=== PATIENT | male | born 1955 | race Caucasian/White ===

== ENCOUNTER 2025-08-08 14:16 | Emergency (ER) | payer MEDICARE, SELFPAY ==
--- OUTSIDE RECORDS SUMMARY | 2025-08-07 11:00 | XMS_ITS | Encounter Summary ---
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 Name Role Phone Brendon Jackson PA-C Primary Care Provider + [phone] Rosa Guthrie RN Unavailable Reason for Referral * Consultation (Routine) - Authorized Specialty Diagnoses / Procedures Referred By Conteb t Referred To Contact Ophthalmology Diagnoses Type 2 diabetes mellitus with stage 3 chronic kidney disease, with long-term current use of insulin, unspecified whether stage 3a or 3b CKD (HCC) Brendon Jackson PA-C [address] [place] [address] Phone: tel: fax: [facility] [address] [place] [address] Phone: tel:[phone] fax: Referral ID Status Reason Start Date Expiration Date Visits Requested Visits Authorized [id number] Authorized Specialty Services Required 08/07/2025 08/07/2026 1 1 Reason for Visit * Reason Comments Follow-up Patient here for fol low up Encounter Details Date Type Department Care Team (Late st Contact Info) Description 08/07/2025 11:00 AM EDT Office Visit [address] [place] [address] Brendon Jackson PA-C [address] [place] [address] Type 2 diabetes mellitus with stage 3 chronic kidney disease, with long-term current use of insulin, unspecified whether stage 3a or 3b CKD (HCC) (Primary Dx); Encounter for immunization; Other fatigue; Type 2 diabetes mellitus without complication, with long-term current use of insulin (HCC) Social History Tobacco Use Types Packs/Day Years Used Date Smoking Tobacco: Never Passive Smoke Exposure: Never Smokeless Tobacco: Never Alcohol Use Standard Drinks/Week Comments Not Currently 0 (1 standard drink = 0.6 oz pur e alcohol) Alcohol Answer Date Recorded How often do you have a drink containing alcohol ? 0 03/08/2024 How many drinks containing a lcohol do you have on a typical day when you are drinking? 0 03/08/2024 How often do you have six or more drinks on one occasion? 0 03/08/2024 Depression Answer Date Recorded Patient Health Questionnaire-9 Score 3 03/08/2024 Patient Health Questionnaire-9 Score 3 03/08/2024 Last PHQ-9: Questionnaire Data Not on file 0 03/08/2024 Housing Stability Answer Date Recorded What is your housing situation today? I have barrera kebede 06/07/[address] you li ve. Do you have problems with any of the following? None of the above 06/07/2025 Food Insecurity Answer Date Recorded Within the past 12 months, y ou worried that your food would run out before you got money to buy more: Never True 06/07/2025 Within the past 12 months,th e food you bought just didn't last and you didn't have enough money to get more: Never True 11/2024 Transportation Answer Date Recorded In the past 12 months, has l ack of transportation kept you from medical appts, meetings, work or from getting things needed for daily living? No 06/07/2025 Intimate Partner Violence Answer Date R ecorded Within the last year, have y ou been afraid of your partner or ex-partner? 2 03/08/2024 Within the last year, have y ou been humiliated or emotionally abused in other ways by your partner or ex-partner? 2 Within the last year, have y ou been kicked, hit, slapped, or otherwise physically hurt by your partner or ex-partner? 2 03/08/2024 Within the last year, have y ou been raped or forced to have any kind of sexual activity by your partner or ex-partner? 2 03/08/2024 Utilities Answer Date Recorded In the past 12 months, has t he electric, gas, oil or water company threatened to shut off services in your home? No 06/07/2025 Depression Answer Date Recorded Patient Health Questionnaire-2 Score 0 06/07/2025 Internet Access Answer Date Recorded Internet Access Q1 Yes 06/07/2025 Internet Access Q2 Not on file 06/07/2025 Sex and Gender Information Value Date Recorded Sex Assigned at Male 11/10/2022 8:55 AM EST Legal Sex Male 8:38 PM EST Gender Identity Male 09/17/2022 9:06 PM EST Sexual Orientation Choose not to disclose 2021 9:06 PM EST documented as of this encounter Last Filed Vital Signs Vital Sign Reading Time Taken Comments Blood Pressure 114/68 08/07/2025 11:01 AM EDT Pulse 71 08/07/2025 11:01 AM EDT Temperature 36.4 C (97.6 F) 08/07/2025 11:01 AM EDT Respiratory Rate - - Oxygen Saturation 97% 08/07/2025 11:01 AM EDT Inhaled Oxygen Concentration - - Weight 108 kg (237 lb) 08/07/2025 11:01 AM EDT Height - - Body Mass Index 33.53 05/07/2024 1:55 PM EDT documented in this encounter Patient Instructions * Patient Instructions* Brendon Jackson PA-C - 08/07/2025 11:00 AM EDT - 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 - Keep using your current insulin as you have been. - Get your blood tests done: hemoglobin A1c and a full metabolic panel (this checks things like your electrolytes, kidney, liver, and thyroid function). We will forward lab results to your heart and kidney doctors. - If you start taking Mounjaro, call after you have taken three doses to request next dose up. - Keep using your Yolanda 3 Plus glucose monitor. Let us know when you are running low on supplies sowe can refill them. Please call if sugar (glucose) is under 50 or over 500. - Your next kidney doctor appointment is on August 14, 2025, at 1:30 PM --please call and confirm the address for this visit. The online portal says harcourt? Appointments Cardiology Aarti Milton AYALA Tuesday 10.3 at 2 PM And Tuesday 10.7 at 2:30 PM [facility] [address] [facility] [address] Phone: Nephrology (kidneys) Dr. Epstein Tuesday 10.8 at 1:30 PM Check address--- [address] [place] [address] Dr. Simon E [facility] [phone] Phone: documented in this encounter Progress Notes * Brendon Jackson PA-C - 08/07/2025 11:00 AM EDT Subjective Patient ID: Brendon Valderrama is a 69 y.o. male who presents today for Chief Complaint Patient presents with Follow-up Patient here for follow up HPI Brendon reports difficulty obtaining insulin pen needles from the pharmacy, resulting in running low on supplies despite having insulin available. He has also been unable to get his Trulicity prescription filled, missing doses for 1 or 2 weeks going by my last prescription. He continues to take Brilinta and Entresto twice daily, furosemide (Lasix) 40 daily with 20 nightly as needed (though takes most nights), Farxiga 5 mg, baby aspirin, pravastatin at night, and carvedilol twice daily. He takes amultivitamin, zinc, vitamin D, fish oil, and Tylenol for arthritis. 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 He reports staying in bed for several days due to exhaustion, with improvement after rest and taking vitamins. He experienced a stomach ache but denies fever and diarrhea, noting constipation that has since resolved. He suspected possible COVID infection but feels better now. Except the fatigue. He uses a glucose monitor, now on Yolanda 3 Plus, preferred the Dexcom device for its immediate readings on demand, I believe we had to switch due to insurance. He receives Yolanda sensors by mail and has plenty. He is transitioning his residence from [place] to [place], living in a mobile home with his ?partner. He expresses concern about Lyme disease due to colleagues at work being affected, but denies classic bullseye rash, reporting only occasional dry skin changes on himself. Not sure what's going on with his colonoscopy, trying to focus on DM and CKD for now. Thinking of getting a primary closer to [place] as it's 90 minute commute to see me. Review of Systems Recent fatigue No fever No melena or hematochezia Objective BP 114/68 (BP Location: Left arm, Patient Position: Sitting, BP Cuff Size: Large adult) Pulse 71 Temp 97.6 ??F (36.4 ??C) (Temporal) Wt 237 lb (108 kg) SpO2 97% BMI 33.53 kg/m?? Physical Exam Constitutional: General: He is not in acute distress. Appearance: He is obese. Eyes: Extraocular Movements: Extraocular movements intact. Cardiovascular: Rate and Rhythm: Normal rate. Pulmonary: Effort: Pulmonary effort is normal. Musculoskeletal: General: Normal range of motion. Right lower leg: No edema. Left lower leg: No edema. Neurological: General: No focal deficit present. Mental Status: He is alert. Mental status is at baseline. Psychiatric: Mood and Affect: Mood normal. Thought Content: Thought content normal. Assessment/Plan Assessment & Plan Type 2 diabetes mellitus with stage 3 chronic kidney disease, with long-term current use of insulin, unspecified whether stage 3a or 3b CKD ([facility]) - Contacted pharmacy to resolve insulin pen needle supply issue; prescription expected to be ready this afternoon. Advised to continue current insulin regimen 24 u bid. Ordered hemoglobin A1c test toassess glycemic control. Prescribed Mounjaro as an alternative to Trulicity, pending insurance approval. Instructed to call after completing three doses of Mounjaro for dose escalation. Advised to continue using Yolanda 3 Plus glucose monitoring system and to notify when supplies are low for refill. Encounter for immunization Flu vaccine Other fatigue Check CMP and TSH Reassess Lasix with cardiology in 2 days. Currently euvolemic Clinically no Lyme disease, no utility for IgG test Addendum Received notice of call 08:08 on 08.08.25 the glucose was critical 518 Bicarb is normal 22 no DKA Called Brendon, feeling about the same as yesterday, not sick or dizzy Does not have glucometer, left it at home Will check glucose later today after taking his basal insulin Suggested taking 26 u instead of 24 If glucose still > 500 advised go to emergency room. KELLY on CKD Until see cardiology tomorrow, stop Lasix 20 mg at night and decrease morning 40 mg to 20 mg. Follow up in about 2 months (around 10/07/2025) for chronic disease managment. Future Appointments Date Time Provider Department Center 09/26/2025 12:40 PM Brendon Jackson PA-C [facility] documented in this encounter Plan of Treatment Upcoming Encounters Date Type Department Care Team (Late st Contact Info) Description 09/26/2025 12:40 PM EST Office Visit [facility] [address] [place] [address] Brendon Jackson PA-C [address], [place] [id number] Scheduled Referrals Name Type Priority Associated Diagnoses Order Schedule Referral to Ophthalmology Outpatient Referral Routine Type 2 diabetes mellitus with stage 3 chronic kidney disease, with long-term current use of insulin, unspecified whether stage 3a or 3b CKD (CMS/[facility]) Expected: 08/07/2025 (Approximate), Expires: 08/07/2026 documented as of this encounter Procedures Procedure Name Priority Date/Time Associated Diagnosis Comments TSH W/REFLEX TO FT4 Routine 08/07/2025 1 1:36 AM EDT Other fatigue HEMOGLOBIN A1C Routine 08/07/2025 11:36 AM EDT Type 2 diabetes mellitus with stage 3 chronic kidney disease, with long-term current use of insulin, unspecified whether stage 3a or 3b CKD (HCC) COMPREHENSIVE METABOLIC PANEL Routine 08/07/2025 11:36 AM EDT Other fatigue documented in this encounter Results * (ABNORMAL) Hemoglobin A1c (08/07/2025 11:36 AM EDT) Hemoglobin A1c 12.1(H) <5.7 % [facility] [place] [facility] Comment: For someone without known diabetes, a hemoglobin A1c value of 6.5% or greater indicates that they may have diabetes and this should be confirmed with a follow-up test. For someone with known diabetes, a value <7% indicates that their diabetes is well controlled and a value greater than or equal to 7% indicates suboptimal control. A1c targets should be individualized based on duration of diabetes, age, comorbid conditions, and other considerations. Currently, no consensus exists regarding use of hemoglobin A1c for diagnosis of diabetes for children. Blood Venous blood specimen / Unknown 08/07/2025 11:36 AM EDT 08/07/2025 11:36 AM EDT Narrative [facility] - 08/08/2025 8:07 AM EDT FASTING:NO FASTING: NO us Brendon Jackson PA-C LAB BLOOD ORDERABLES Final R esult [facility] [address], [place] [address] [facility] [address] [place] [address] * TSH with Reflex to Free T4 (08/07/2025 11:36 AM EDT) TSH w/Reflex to FT4 2.07 0.40 - 4.50 mIU/L [facility] Blood Venous blood specimen / Unknown 08/07/2025 11:36 AM EDT 08/07/2025 11:36 AM EDT Narrative [facility] - 08/08/2025 8:07 AM EDT FASTING:NO FASTING: NO us Brendon Jackson PA-C LAB BLOOD ORDERABLES Final R esult [facility] [address], [place] [address] [facility] [place] [facility] [address] [place] [address] * (ABNORMAL) Comprehensive Metabolic Panel (08/07/2025 11:36 AM EDT) Glucose 518(HH) 65 - 139 mg/dL [facility] [place] [facility] Comment: Verified by repeat analysis. Non-fasting reference interval Urea Nitrogen (BUN) 34(H) 7 - 25 mg/dL [facility] Creatinine, Serum 1.73(H) 0.70 - 1.35 mg/dL [facility] eGFR 42(L) > OR = 60 mL/min/1. 73m2 [facility] BUN/Creatinine Ratio 20 6 - 22 (calc) [facility] Sodium 129(L) 135 - 146 mmol/L [facility] Potassium 4.6 3.5 - 5.3 mmol/L [facility] Chloride 96(L) 98 - 110 mmol/L [facility] Carbon Dioxide 22 20 - 32 mmol/L [facility] Calcium 8.8 8.6 - 10.3 mg/dL [facility] Protein, Total 7.3 6.1 - 8.1 g/dL [facility] Albumin 3.9 3.6 - 5.1 g/dL [facility] Globulin 3.4 1.9 - 3.7 g/dL (calc) [facility] Albumin/Globuli n Ratio 1.1 1.0 - 2.5 (calc) [facility] Bilirubin, Total 0.6 0.2 - 1.2 mg/dL [facility] Alkaline Phosphatase 97 35 - 144 U/L [facility] AST 16 10 - 35 U/L [facility] ALT 22 9 - 46 U/L [facility] Blood Venous blood specimen / Unknown 08/07/2025 11:36 AM EDT 08/07/2025 11:36 AM EDT Narrative [facility] - 08/08/2025 8:07 AM EDT FASTING:NO FASTING: NO Brendon Jackson PA-C LAB BLOOD ORDERABLES Final R esult [facility] [address], [place] [address] [facility] [address] [place] [address] documented in this encounter Visit Diagnoses Diagnosis Type 2 diabetes mellitus with stage 3 chronic kidney disease, with long-term current use of insulin, unspecified whether stage 3a or 3b CKD (HCC)- Primary Encounter for immunization Other fatigue Type 2 diabetes mellitus without complication, with long-term current use of insulin (HCC) documented in this encounter Additional Health Concerns Assessment Noted Time PHQ-9 Depression Total Score: 3 03/08/20 24 12:57 PM EDT documented as of this encounter Care Teams Nitric Acid Plant Operator Relationship Specialty Start Date End Date Brendon Jackson PA-C [address] [place] [address] PCP - General Family Medicine 02/27/24 Rosa Guthrie, RN [address] [place] [address] Store Mgr 05/07/24 Fabricio Samaniego Dentist 10/07/22 documented as of this encounter
[2025-08-08 14:21] VITALS: BP 127/61; PULSE 65; RESP 18; TEMP 37; O2SAT 97; BMI 35.8
--- NOTE | 2025-08-08 14:39 | ED.GENADULT ---
HPI - General Adult General Chief complaint: Recheck/Abnormal Lab/Rx Stated complaint: diabetes, high sugar Time Seen by Provider: 08/08/25 18:12 History of Present Illness HPI narrative: Patient is a 68-year-old male presents today with having a history of diabetes. Told to come to the ED because his sugar is very elevated. Has a history of chronic renal problems well. Has been on long-acting insulin supposed to take short-acting insulin but has not been taking it. No fever no chills has all the diabetes support right now. No change in his diet. He has been compliant with his diabetic diet. Patient denies any coughing congestion upper respiratory symptoms. Denies any chest pain. From home. Related Data Allergies Allergy/AdvReac Type Severity Reaction Status Date / Time No Known Allergies Allergy Verified 08/08/25 14:26 Review of Systems Review of Systems: Positive history of diabetes Yes all other systems are reviewed and are negative ON LICENSE OF [facility] Past Medical History Attestation statement: The following information was validated with the patient. Social History Social History Smoked in Last 30 Days: No Use of substances other than those prescribed or required for medical reasons: No Advance Directives: No Advance Directives Information Provided: No Physical Exam ED Exam Exam: Appearance: Alert. Oriented X3. No acute distress. Eyes: Pupils equal, round and reactive to light. ENT: Pharynx normal. Neck: Normal inspection. Neck supple. No lymph nodes noted. No crepitus CVS: Normal heart rate and rhythm. Pulses normal. Normal S1 and S2 Respiratory: No respiratory distress. Breath sounds normal. No Wheezing. No rales Abdomen: Soft and nontender. No rigidity. No distention. good BS x4 Skin: Skin warm and dry. Normal skin color. Normal skin turgor. Extremities: No lower extremity edema. Neurovascular intact to all extremities. No Lacerations. No Rash Neuro: Oriented X 3. No motor deficit. No sensory deficit. Moving all extermities. No slurred speech Vital Signs: Vital Signs - 24 hr 08/08/25 14:21 08/08/25 19:18 Temperature 98.6 F 97.3 F Pulse Rate 65 59 Respiratory Rate 18 16 Blood Pressure 127/61 131/58 L Pulse Oximetry 97 96 Oxygen Delivery Method Room Air Room Air BMI result Body Mass Index 35.8 Course Course Course Narrative: RME: 69-year-old male presents to ED for hypoglycemia. Patient states polydipsia polyuria. Patient was sent for primary care provider due to glucose over 500. Labs ordered Medications Administered Discontinued Medications Generic Name Dose Route Start Last Admin Trade Name Joseq PRN Reason Stop Dose Admin Sodium Chloride 1,000 mls @ 999 mls/hr 08/08/25 18:15 08/08/25 20:34 Ns IV 08/08/25 19:15 Infused .Q1H1M PARVEZ Infusion Sodium Chloride 1,000 mls @ 999 mls/hr 08/08/25 18:15 08/08/25 19:21 Ns IV 08/08/25 19:15 999 mls/hr .Q1H1M PARVEZ Administration Medical Decision Making Medical Decision Making [facility] Narrative: Well-appearing no acute distress. Patient initial sugar was elevated at 449. Patient given IV fluid monitored. BUN and creatinine was elevated but repeat dictation stated that he had a previous history of chronic renal insufficiency likely more chronic in nature anion gap is normal bicarb is 21 less likely to have DKA. Patient's LFTs are normal. Beta hydroxybutyrate was normal at 0.27. In no acute distress. Blood pressure down. Recheck sugar after 2 L of fluids is down into the 200s. Patient to be discharged home close follow-up on an outpatient basis explained to patient the need to take his insulin both the long-acting in the short-acting. Need to follow-up closely with his doctor for repeat check of glucose. Currently in stable condition Differential Diagnosis Differential Diagnoses: The differential diagnosis associated with the presentation includes Hyperglycemia Admission/Observation Consideration of admission/observation: Escalation of care including admission/observation considered Diabetic ketoacidosis, hyperglycemia Lab Data [facility] Lab Attestation statement: I reviewed the patient's lab results. 08/08/25 14:48 08/08/25 14:48 Labs: Lab Results 08/08/25 08/08/25 Range/Units 14:48 19:18 WBC 6.5 (4.8-10.8) X10*3/uL RBC 4.44 L (4.60-5.80) X10*6/uL Hgb 13.3 L (14.0-18.0) g/dl Hct 37.1 L (42.0-52.0) % MCV 83.6 (80.0-98.0) fL MCH 30.0 (27.0-33.0) pg MCHC 35.8 (31.0-36.0) g/dl RDW 13.8 (11.0-16.0) % Plt Count 246 (160-400) X10*3/uL MPV 10.5 (9.4-12.4) fL Immature Gran % (Auto) 0.9 H (0.0-0.4) % Neut % (Auto) 70.5 (45-73) % Lymph % (Auto) 15.7 L (20-40) % [place] % (Auto) 6.9 (2-11) % Eos % (Auto) 5.2 H (0-4) % Baso % (Auto) 0.8 (0-2) % Lymph # (Auto) 1.0 L (1.2-4.9) X10*3/uL [place] # (Auto) 0.5 (0.1-1.2) X10*3/uL Eos # (Auto) 0.3 (0.0-0.4) X10*3/uL Baso # (Auto) 0.1 (0.0-0.2) X10*3/uL Abs Immat Gran (auto) 0.06 H (0.00-0.03) X10*3/uL Absolute Neuts (auto) 4.6 (2.0-8.3) x10*3/uL Absolute Nucleated RBC 0.000 (0.0-0.012) X10*3/uL Nucleated RBC % (auto) 0.0 (0.0-0.2) /100WBC Sodium 132 L (135-145) mmol/L Potassium 4.4 (3.3-5.1) mmol/L Chloride 103 (96-108) mmol/L Carbon Dioxide 21 L (22-29) mmol/L Anion Gap 12 (12-20) BUN 41 H (9-16) mg/dL Creatinine 1.88 H (0.5-1.4) mg/dL Estim Creat Clear Calc 43.9 Estimated GFR 36 POC Glucose 278 H (60-115) mg/dL Random Glucose 449 H* (60-115) mg/dL Calcium 8.7 (8.4-10.2) mg/dL Total Bilirubin 0.5 (0.0-1.0) mg/dL AST 22 (5-37) U/L ALT 27 (0-40) U/L Alkaline Phosphatase 102 (39-117) U/L Total Protein 7.3 (6.5-8.0) g/dL Albumin 3.8 (3.5-5.0) g/dL Beta-Hydroxybutyrate 0.26 (0.02-0.27) mmol/L Chronic Conditions Patient?s care impacted by: Diabetes and Hypertension Social Determinants Patient?s care significantly limited by Social Determinants of Health including: Problems related to primary support group Discharge Plan Discharge Clinical Impression: Acute hyperglycemia, Diabetes Instructions: Diabetes and Nutrition (ED), How to Check your Blood Sugar (DC), Type 2 Diabetes Management for Adults (ED) Referrals: PhysicianSalvador [Primary Care Provider, Medical] - 08/09/25 Referral Note: Please follow-up with your current DrTyrone for your diabetes need. Gem Rascon MD [Physician, Internal Medicine] - 08/12/25 Print Language: Welsh
[2025-08-08 15:07] LABS: MANUAL DIFF FLAG NO
[2025-08-08 15:10] LABS: Hematocrit 37.1 % (42.0-52.0); Hemoglobin 13.3 g/dl (14.0-18.0); Imm Gran Abs Auto 0.06 X10*3/uL (0.00-0.03); Imm Gran Pct Auto 0.9 % (0.0-0.4); Lymphocytes Absolute Auto 1.0 X10*3/uL (1.2-4.9); Mean Corpuscular HGB Conc 35.8 g/dl (31.0-36.0); Mean Corpuscular Hemoglobin 30.0 pg (27.0-33.0); Mean Corpuscular Volume 83.6 fL (80.0-98.0); NRBC Abs Auto 0.000 X10*3/uL (0.0-0.012); NRBC Pct Auto 0.0 /100WBC (0.0-0.2); Platelet Count 246 X10*3/uL (160-400); Red Blood Count 4.44 X10*6/uL (4.60-5.80); White Blood Count 6.5 X10*3/uL (4.8-10.8)
[2025-08-08 15:27] LABS: Alanine Aminotransferase 27 U/L (0-40); Albumin Level 3.8 g/dL (3.5-5.0); Alkaline Phosphatase 102 U/L (39-117); Anion Gap 12 (12-20); Aspartate Amino Transferase 22 U/L (5-37); Blood Urea Nitrogen 41 mg/dL (9-16); Calcium 8.7 mg/dL (8.4-10.2); Carbon Dioxide 21 mmol/L (22-29); Chloride 103 mmol/L (96-108); Creatinine Clr Calc Pharmacy 43.9; Estimated Glomerular Filt Rate 36; Potassium 4.4 mmol/L (3.3-5.1); Sodium 132 mmol/L (135-145); Total Protein 7.3 g/dL (6.5-8.0)
--- OUTSIDE RECORDS SUMMARY | 2025-08-08 18:26 | XMS_ITS | Clinical Summary ---
Author Organization [facility], Address [address] [place] [address] Phone Care Team Providers Care Latex Thread Machine Operator Name Role Phone Brendon Jackson Primary Care Provider [phone] Allergies Active Allergy Reactions Criticality Noted Date Comments Statins Other (see comments) 04/24/2022 Medications Aspirin (Vazalore) 81 MG capsule Take 81 mg by mouth daily 04/03/2022 Active atorvastatin (LIPITOR) 80 MG tablet Take 80 mg by mouth 1 (one) time each day in the evening 05/03/2022 Active carvedilol (COREG) 3.125 MG tablet Take 3.125 mg by mouth in the morning and 3.125 mg in the evening. 04/03/2022 Active clopidogrel (PLAVIX) 75 MG tablet Take 75 mg by mouth in the morning. 04/03/2022 Active D3-1000 25 MCG (1000 UT) tablet Take 2,000 Units by mouth 1 (one) time each day 02/23/2022 Active glipiZIDE (GLUCOTROL) 10 MG tablet Take 10 mg by mouth in the morning and 10 mg in the evening. 01/28/2022 Active Dulaglutide (Trulicity) 4.5 MG/0.5ML solution pen-injector Inject 0.5 mL under the skin per week Dx code e11.21 2 mL 5 07/11/2024 Active Continuous Glucose Communications Attendant (FreeStyle Yolanda 3 Murdo) device 1 Device 1 (one) time each day Dx code e11.21 1 each 3 07/11/2024 Active Continuous Glucose Sensor (FreeStyle Yolanda 3 Sensor) misc 1 Device 1 (one) time each day Dx code e11.21 2 each 5 07/11/2024 Active Helio Armenta SoloStar 300 UNIT/ML solution pen-injector INJECT 16 UNITS UNDER THE SKIN IN THE MORNING. Active pravastatin (PRAVACHOL) 80 MG tablet Take 1 tablet (80 mg total) by mouth at bed time 90 tablet 3 08/02/2024 Active Farxiga 5 MG tablet Take 5 mg by mouth 1 (one) time each day 30 tablet 3 08/02/2024 Active furosemide (LASIX) 20 MG tablet Take 1 tablet (20 mg total) by mouth in the morning and 1 tablet (20 mg total) in the evening. 180 tablet 3 06/10/2025 Active Active Problems Problem Noted Date Diagnosed Date Systolic heart failure, not otherwise specified 08/02/2024 Renal disorder due to type 2 diabetes mellitus 0 05/27/2022 Stage 3b chronic kidney disease 05/27/2022 Renal stone 05/25/2022 Uncontrolled type 2 diabetes mellitus 05/25/2022 Overview (08/07/2024): Replacing diagnoses that were inactivated after the 08/07/24 Regulatory Import Vitamin D deficiency 05/25/2022 Acute nontraumatic kidney injury 04/25/2022 Overview (05/25/2022): Last Assessment & Plan: Resolving. Likely a prerenal azotemia secondary to diarrhea. Probably some contribution from Demadex as well. We will give IV fluids, avoid nephrotoxic medications and monitor renal function. Nephrology was consulted. Essential hypertension 04/25/2022 Overview (05/25/2022): Last Assessment & Plan: Hemodynamically stable. Continue carvedilol with hold parameters. Hold off on lisinopril in the setting of acute kidney injury. Hyperkalemia 04/25/2022 Overview (05/25/2022): Last Assessment & Plan: Review of [place] labs indicates chronic low-level hyperkalemia between 5.5 and 6.0. This is likely why he is not having any EKG changes from a potassium of 7.3. He was given bicarbonate, insulin and nebulizer in the emergency department, but potassium increased. Initially treated with Lokelma and calcium gluconate and repeating bicarbonate, insulin and nebulizer. Likely secondary to acidosis as well as reduced potassium delivery to the distal tubule Will check again this afternoon after starting bicarbonate therapy Hyperlipidemia 04/25/2022 Overview (05/25/2022): Last Assessment & Plan: He has been mistakingly taking atorvastatin AND pravastatin after discharge from [facility]. He was instructed that he is only supposed to be taking atorvastatin. Stage 3a chronic kidney disease 04/25/2022 Overview (05/25/2022): Baseline creatinine 1.5 GFR 50 Type 2 diabetes mellitus 04/25/2022 Overview (05/25/2022): Last Assessment & Plan: Holding sulfonylurea and metformin in the setting of acute kidney injury. We will give basal bolus insulin therapy. Encounters Date Type Department Care Team Description 06/08/2025 Refill [facility] [address] [place] [address] Yan Epstein MD from Last 3 Months Immunizations Immunization Administration Dates Next Due Moderna SARS-COV-2 09/22/2021,02/13/2021, 021 Family History Medical History Relation Comments Cancer Brother Heart disease Father Cancer Mother Heart disease Sister Relation Status Comments Brother Father Mother Sister Social History Tobacco Use Types Packs/Day Years Used Date Smoking Tobacco: Never Alcohol Use Standard Drinks/Week Comments Never 0 (1 standard drink = 0.6 oz pur e alcohol) Sex and Gender Information Value Date Recorded Sex Assigned at Not on file Legal Sex Male 4:32 PM EST Gender Identity Not on file Sexual Orientation Not on file Plan of Treatment Upcoming Encounters Date Type Department Care Team (Late st Contact Info) Description 08/14/2025 1:30 PM EDT Office Visit [facility] [place] - [address] [place] [address] Yan Epstein MD [address] [facility] [place] [phone] Health Maintenance Due Date Last Done Comments Pneumococcal Vaccine: 50+ Years (1 of 2 - PCV) 1974 Colorectal Cancer Screening: Annual FOBT 2004 Colorectal Cancer Screening: Colonoscopy 2004 Colorectal Cancer Screening: Sigmoidoscopy 2004 Diabetes: Ophthalmology Exam 01/28/2020 Diabetes: Pedal Pulse Checked 01/28/2020 Diabetes: Sensory Foot Exam 01/28/2020 Diabetes: Visual Foot Exam 01/28/2020 Influenza Vaccine (#1) 2025 Diabetes: Hemoglobin A1C 09/07/2025 025, 11/15/2024, 04/30/2024, Additional history exists Hepatitis B Vaccine Aged Out No longe r eligible based on patient's age to complete this topic Procedures Procedure Name Priority Date/Time Associated Diagnosis Comments HEMOGLOBIN A1C Routine 11/24/2023 3:21 PM EST from Last 3 Months or Most Recently Relevant to Health Maintenance Results * (ABNORMAL) Hemoglobin A1c (11/24/2023 3:21 PM EST) Hemoglobin A1C 8.8(H) (4.0-5.6) % [facility] Comment: MONITORING: In known diabetic patients, hemoglobin A1c targets should be discussed with health care provider. DIAGNOSTIC USE: The [place] Diabetes Association (ADA) and the World Health Organization (WHO) recommend the use of HbA1c to diagnose diabetes using a threshold of 6.5%. Patients who have an HbA1c between 5.7% and 6.4% are considered at increased risk for developing diabetes in the future. CAUTION: Falsely low HbA1c results may be observed in patients with hemolytic anemia, homozygous forms of abnormal hemoglobin (e.g. SS, CC, SC), , recent blood loss or hemoglobin F greater than 7%. Fructosamine may be used as an alternate test in these cases. REFERENCE: ADA: Standards of Medical Care in Diabetes 2020, The Journal of Clinical and Applied Research and Education Volume 43, Supplement 1 Testing performed or reported by [facility], a Service of [facility], [address] [place] [address] Marquis Lyle MD, Nuclear Operations Specialist [facility]# [id number] 11/24/2023 3:21 PM EST 11/24/2023 3:23 PM EST us Yan Epstein MD LAB BLOOD ORDERABLES Final Resul t [facility] from Last 3 Months or Most Recently Relevant to Health Maintenance Insurance Medicare Care Teams Latex Thread Machine Operator Relationship Specialty Start Date End Date Brendon Jackson [address] [facility] [place] [address] PCP - General 02/06/25
--- OUTSIDE RECORDS SUMMARY | 2025-08-08 18:26 | XMS_ITS | Encounter Summary ---
Author Organization [facility], Address [address] [place] [address] Phone Care Team Providers Care Master In Chancery Name Role Phone Brendon Jackson Primary Care Provider [phone] Encounter Details Date Type Department Care Team (Late st Contact Info) Description 08/06/2024 Documentation Only [facility] [address] [place] [address] Florinda Mcclure [address] [place] [address] [phone] Social History Tobacco Use Types Packs/Day Years Used Date Smoking Tobacco: Never Alcohol Use Standard Drinks/Week Comments Never 0 (1 standard drink = 0.6 oz pur e alcohol) Sex and Gender Information Value Date Recorded Sex Assigned at Not on file Legal Sex Male 4:32 PM EST Gender Identity Not on file Sexual Orientation Not on file documented as of this encounter Plan of Treatment Upcoming Encounters Date Type Department Care Team (Late st Contact Info) Description 08/14/2025 1:30 PM EDT Office Visit [facility] Mu Dr José Miguel [address] [place] [address] Yan Epstein MD [address] [place] [address] [place] [address] documented as of this encounter Visit Diagnoses Not on filedocumented in this encounter Care Teams Master In Chancery Relationship Specialty Start Date End Date Brendon Jackson [address] [place] [address] [place] [address] PCP - General 02/06/25 documented as of this encounter
--- OUTSIDE RECORDS SUMMARY | 2025-08-08 18:27 | XMS_ITS | Encounter Summary ---
Author Organization [employer] Address [address] [place] [address] 7t [place] [address] Care Team Providers Care Sat Act Instructor Name Role Phone Brendon Jackson PA-C Primary Care Provider [phone] Surekha Marie Unavailable Rosa Gutrhie RN Unavailable Encounter Details Date Type Department Care Team (Late st Contact Info) Description 05/17/2024 Orders Only [facility] [address] [facility] [address] [place] [address] Brendon Jackson PA-C [address] [place] [address] Social History Tobacco Use Types Packs/Day Years [...] housing situation today? I have barrera kebede 03/08/[address] you li ve. Do you have problems with any of the following? None of the above 03/08/2024 Food Insecurity Answer Date Recorded Within the past 12 months, y ou worried that your food would run out before you got money to buy more: Never True 03/08/2024 Within the past 12 months,th e food you bought just didn't last and you didn't have enough money to get more: Never True 12/2023 Transportation Answer Date Recorded In the past 12 months, has l ack of transportation kept you from medical appts, meetings, work or from getting things needed for daily living? No 03/08/2024 Intimate Partner Violence Answer Date R ecorded [...] shut off services in your home? No 03/08/2024 Depression Answer Date Recorded Patient Health Questionnaire-2 Score 0 03/08/2024 Sex and Gender Information Value Date Recorded Sex Assigned at Male 11/10/2022 8:55 AM EST Legal Sex Male 8:38 PM EST Gender Identity Male 09/17/2022 9:06 PM EST Sexual Orientation Choose not to disclose 2021 9:06 PM EST documented as of this encounter Plan of Treatment Upcoming Encounters Date Type Department Care Team (Late st Contact Info) Description 09/26/2025 12:40 PM EST Office Visit [facility] [address] [facility] [address] [place] [address] Brendon Jackson PA-C [address] [place], [place] [phone] documented as of this encounter Visit Diagnoses Not on filedocumented in this encounter Additional Health Concerns Assessment Noted Time PHQ-9 Depression Total Score: 3 03/08/20 24 12:57 PM EDT documented as of this encounter Care Teams Sat Act Instructor Relationship Specialty Start Date End Date Brendon Jackson PA-C [address] [place] [address] PCP - General Family Medicine 02/27/24 Surekha Marie [address] [place] [address] Community Health Worker 03/09/2405/22 Rosa Guthrie RN [address] [place] [address] Office System Analyst 05/07/24 Fabricio Samaniego Dentist 10/07/22 documented as of this encounter
--- OUTSIDE RECORDS SUMMARY | 2025-08-08 18:27 | XMS_ITS | Encounter Summary ---
Author Organization [facility], Address [address] [place] [address] Phone Care Team Providers Care Aeronautics Teacher Name Role Phone Brendon Jackson Primary Care Provider [phone] Encounter Details Date Type Department Care Team (Late st Contact Info) Description 01/27/2024 Documentation Only [facility] [address] [place] [place] [address] Florinda Mcclure [address] [place] [address] [phone] Social History Tobacco Use Types Packs/Day Years [...] Visit [facility] Mu Dr José Miguel [address] [place] [phone] Yan Epstein MD [address] [place] [address] [place] [address] documented as of this encounter Visit Diagnoses Not on filedocumented in this encounter Care Teams Aeronautics Teacher Relationship Specialty Start Date End Date Brendon Jackson [address] [place] [address] [place] [address] PCP - General 02/06/25 documented as of this encounter
--- OUTSIDE RECORDS SUMMARY | 2025-08-08 18:27 | XMS_ITS | Encounter Summary ---
Author Organization [facility] Address [address] [facility] [address] [place] [address] Phone Care Team Providers Care Boomswing Operator Name Role Phone Cassandra Roman MD Primary Care Provider [phone] Reason for Visit * Reason Onset Date Comments Medication Refill 07/15/2025 Encounter Details Date Type Department Care Team (Late st Contact Info) Description 07/15/2025 Refill [facility] [address] [facility] 3rd Floor, [address] [place] [address] Leticia Enamorado [place] [address] [place] [address] [email or web address] Medication Refill Social History Tobacco Use Types Packs/Day Years Used Date Smoking Tobacco: Never Smokeless Tobacco: Never Alcohol Use Standard Drinks/Week Comments Not Currently 0 (1 standard drink = 0.6 oz pur e alcohol) Education Answer Date Recorded Are you interested in more education? Not on constantin e 03/05/2023 Are you concerned about learning? Not on file 03/05/2023 No 03/05/2023 No 03/05/2023 Digital Access Answer Date Recorded No 04/01/2023 No 04/01/2023 Reliable internet access at home? Not on file 04/01/2023 Device with a working camera? Not on file Intimate Partner Violence Answer Date R ecorded Are you denied basic needs s uch as food, clothing, or medical care? No 03/06/2024 In the past 12 months have y ou been in a relationship with a person who hurts, threatens, or tries to control you? No 03/06/2024 Are you denied basic needs s uch as food, clothing, or medical care? No 03/06/2024 In the past 12 months have y ou been in a relationship with a person who hurts, threatens, or tries to control you? No 03/06/2024 Sex and Gender Information Value Date Recorded Sex Assigned at Male 04/24/2022 9:34 PM EDT Legal Sex Male 9:32 AM EDT Gender Identity Male 04/24/2022 9:34 PM EDT Sexual Orientation Not on file documented as of this encounter Plan of Treatment Upcoming Encounters Date Type Department Care Team (Late st Contact Info) Description 05/09/2025 Procedure [facility] [address] [place] [address] 08/09/2025 2:00 PM EDT Appointment [facility] [address] [place] [address] Aarti Rose DNP [address] [place] [address], [address] [address] [email or web address] 08/13/2025 2:30 PM EDT Office Visit [facility] [address] [place] [address] 3rd Floor, [address] [place] [address] Aarti Rose DNP [address] [place] [address], [address] [address] [email or web address] documented as of this encounter Visit Diagnoses Not on filedocumented in this encounter Care Teams Boomswing Operator Relationship Specialty Start Date End Date Cassandra Roman MD [address] [place] [address] [email or web address] PCP - General Family Medicine 05/06/25 documented as of this encounter Additional Source Comments The information contained in this document represents components of the legal health record. It is not the complete legal health record.[facility]
--- OUTSIDE RECORDS SUMMARY | 2025-08-08 18:27 | XMS_ITS | Encounter Summary ---
Author Organization [facility], Address [address] [place] [address] Phone Care Team Providers Care Fast Food Shift Lead Name Role Phone Brendon Jackson Primary Care Provider [phone] Encounter Details Date Type Department Care Team (Late st Contact Info) Description 02/09/2024 Documentation Only [facility] [address] [place] [address] [place], [place] [address] [place] [phone] Social History Tobacco Use Types Packs/Day Years [...] Visit [facility] Dr [address] Miguel [address] [place] [phone] Yan Epstein MD [address] [place] [address] [place] [phone] documented as of this encounter Visit Diagnoses Not on filedocumented in this encounter Care Teams Fast Food Shift Lead Relationship Specialty Start Date End Date Brendon Jackson [address] [place], [place] [address]ol [place] [address] PCP - General 02/06/25 documented as of this encounter
--- OUTSIDE RECORDS SUMMARY | 2025-08-08 18:27 | XMS_ITS | Encounter Summary ---
Author Organization [facility] [place], Address [address] [place] [address] Phone Care Team Providers Care Retail Banking Manager Name Role Phone Brendon Jackson Primary Care Provider [phone] Encounter Details Date Type Department Care Team (Late st Contact Info) Description 08/06/2024 Documentation Only [facility] [address] [place] [address] Florinda Mcclure [address] [place] [address] [phone] Social History Tobacco Use Types Packs/Day Years [...] Visit [facility] Mu Dr José Miguel [address] [place] [phone] Yan Epstein MD [address] [place] [address] [place] [address] documented as of this encounter Visit Diagnoses Not on filedocumented in this encounter Care Teams Retail Banking Manager Relationship Specialty Start Date End Date Brendon Jackson [address] [place] [address] [place] [address] PCP - General 02/06/25 documented as of this encounter
--- OUTSIDE RECORDS SUMMARY | 2025-08-08 18:27 | XMS_ITS | Encounter Summary ---
Author Organization [facility], Address [address] [place] [address] Phone Care Team Providers Care Chucking Machine Operator Name Role Phone Brendon Jackson Primary Care Provider [phone] Encounter Details Date Type Department Care Team (Late st Contact Info) Description 01/26/2024 Documentation Only [facility] [address] [place] [address] Florinda Mcclure [address] [place] [address] [phone] Social History Tobacco Use Types Packs/Day Years [...] Visit [facility] [address] [place] [address] Yan Epstein MD [address] [facility] [place] [phone] documented as of this encounter Visit Diagnoses Not on filedocumented in this encounter Care Teams Chucking Machine Operator Relationship Specialty Start Date End Date Brendon Jackson [address] [place] [address] [place] [address] PCP - General 02/06/25 documented as of this encounter
--- OUTSIDE RECORDS SUMMARY | 2025-08-08 18:27 | XMS_ITS | Encounter Summary ---
Author Organization [facility], Address [address] [place] [address] Phone Care Team Providers Care Hospital Receiving Clerk Name Role Phone Brendon Jackson Primary Care Provider [phone] Encounter Details Date Type Department Care Team (Late st Contact Info) Description 01/27/2024 Documentation Only [facility] [address] [place] [address] Florinda Mcclure [address] [place] [address] [phone] Social History Tobacco Use Types Packs/Day Years [...] Visit [facility] Mu Dr José Miguel [address] [place] [phone] Yan Epstein MD [address] [place] [address] [place] [address] documented as of this encounter Visit Diagnoses Not on filedocumented in this encounter Care Teams Hospital Receiving Clerk Relationship Specialty Start Date End Date Brendon Jackson [address] [place] [address] [place] [address] PCP - General 02/06/25 documented as of this encounter
--- OUTSIDE RECORDS SUMMARY | 2025-08-08 18:27 | XMS_ITS | Encounter Summary ---
Author Organization [employer] Address [address] [place] [address] 7 [place] [address] Care Team Providers Care Veterinarian Helper Name Role Phone Brendon Jackson PA-C Primary Care Provider [phone] Surekha Marie Unavailable Rosa Guthrie RN Unavailable Encounter Details Date Type Department Care Team (Late st Contact Info) Description 05/01/[address] [address] Brendon Jackson PA-C [address] [place] [address] Social History Tobacco Use Types Packs/Day Years [...] Description 09/26/2025 12:40 PM EST Office Visit [facility] [address] [facility] [address] [place] [address] Brendon Jackson PA-C [address] [place] [address] documented as of this encounter Procedures Procedure Name Priority Date/Time Associated Diagnosis Comments HM DIABETES: URINE PROTEIN SCREENING Routine 01/26/2024 documented in this encounter Results * HM Diabetes: Urine Protein Screening (01/26/2024) Microalbumin, Urine 5.9 Creatinine, Random Urine 67 Urine us Historical Provider MD HEALTH MAINTENANCE Final Result documented in this encounter Visit Diagnoses Not on filedocumented in this encounter Additional Health Concerns Assessment Noted Time PHQ-9 Depression Total Score: 3 03/08/20 24 12:57 PM EDT documented as of this encounter Care Teams Veterinarian Helper Relationship Specialty Start Date End Date Brendon Jackson PA-C [address] [place] [address] PCP - General Family Medicine 02/27/24 Surekha Marie [address] [place] [address] Community Health Worker 03/09/2405/22 Rosa Guthrie, ELZBIETA [address] [place] [address] Neon Sign Servicer 05/07/24 Fabricio Samaniego Dentist 10/07/22 documented as of this encounter
--- OUTSIDE RECORDS SUMMARY | 2025-08-08 18:27 | XMS_ITS | Encounter Summary ---
Author Organization [facility] [place], Address [address] [place] [address] Phone Care Team Providers Care Foiling Machine Adjuster Name Role Phone Brendon Jackson Primary Care Provider [phone] Encounter Details Date Type Department Care Team (Late st Contact Info) Description 01/27/2024 Office Communication [facility] Mu Dr José Miguel [address] [place] [address] Yan Epstein MD [address] [place] [address] [place] [address] Social History Tobacco Use Types Packs/Day Years [...] Visit [facility] Andrey MccloudMu Dr José Miguel [address] [place] [address] Yan Epstein MD [address] [place] [address] [place] [address] documented as of this encounter Visit Diagnoses Not on filedocumented in this encounter Care Teams Foiling Machine Adjuster Relationship Specialty Start Date End Date Brendon Jackson [address] [facility] [place] [address] PCP - General 02/06/25 documented as of this encounter
--- OUTSIDE RECORDS SUMMARY | 2025-08-08 18:27 | XMS_ITS | Encounter Summary ---
Author Organization [employer] Address [address] [facility] 7t [place] [address] Care Team Providers Care Biomass Facilitator Name Role Phone Brendon Jackson PA-C Primary Care Provider [phone] Rosa Guthrie RN Unavailable Encounter Details Date Type Department Care Team (Late st Contact Info) Description 05/23/2024 Orders Only [facility] [address] [place] [phone] Provider, Not In System Social History Tobacco Use Types Packs/Day Years [...] Description 09/26/2025 12:40 PM EST Office Visit [facility] [address] [facility] [address] [place] [address] Brendon Jackson PA-C [address] [place] [address] documented as of this encounter Procedures Procedure Name Priority Date/Time Associated Diagnosis Comments BASIC METABOLIC PANEL Routine 05/22/2024 11:22 AM EDT documented in this encounter Results * Basic Metabolic Panel (05/22/2024 11:22 AM EDT) Blood Venous blood specimen / Unknown us Not In System Provider LAB BLOOD ORDERABLES Nicky l Result documented in this encounter Visit Diagnoses Not on filedocumented in this encounter Additional Health Concerns Assessment Noted Time PHQ-9 Depression Total Score: 3 03/08/20 24 12:57 PM EDT documented as of this encounter Care Teams Biomass Facilitator Relationship Specialty Start Date End Date Brendon Jackson PA-C [address] [place] [address] PCP - General Family Medicine 02/27/24 Rosa Guthrie RN [address] [place] [address] Colorist Dyer 05/07/24 Fabricio Samaniego Dentist 10/07/22 documented as of this encounter
--- OUTSIDE RECORDS SUMMARY | 2025-08-08 18:27 | XMS_ITS | Encounter Summary ---
Author Organization [employer] Address [address] [facility] 7t [place] [address] Care Team Providers Care Data Warehousing Manager Name Role Phone Brendon Jackson PA-C Primary Care Provider [phone] Rosa Guthrie RN Unavailable Encounter Details Date Type Department Care Team (Late st Contact Info) Description 08/03/2024 Orders Only [facility] [address] [place] [address] Provider, Not In System Social History Tobacco [...] Description 09/26/2025 12:40 PM EST Office Visit [facility] [address] [facility] [address] [place] [address] Brendon Jackson PA-C [address] [place] [address] documented as of this encounter Procedures Procedure Name Priority Date/Time Associated Diagnosis Comments VITAMIN D,25-OH,TOTAL,IA Routine 08/02/2024 8:39 AM EDT PTH, INTACT Routine 08/02/2024 8:37 AM EDT PROTEIN, TOTAL W/CREAT, RANDOM URINE Routine 08/02/2024 8:33 AM EDT HEMOGLOBIN A1C Routine 08/02/2024 8:31 AM EDT IRON AND TOTAL IRON BINDING CAPACITY Routine 08/02/2024 8:29 AM EDT CBC Routine 08/02/2024 8:29 AM EDT FERRITIN Routine 08/02/2024 8:29 AM EDT RENAL FUNCTION PANEL Routine 08/02/2024 8:29 AM EDT documented in this encounter Results * Vitamin D, 25-Hydroxy, Total, Immunoassay (08/02/2024 8:39 AM EDT) Blood us Not In System Provider LAB BLOOD ORDERABLES Nicky l Result * PTH, INTACT (08/02/2024 8:37 AM EDT) us Not In System Provider LAB BLOOD ORDERABLES Nicky l Result * Protein, Total, Random Urine with Creatinine (08/02/2024 8:33 AM EDT) Urine Urine specimen obtained by clean catch procedure / Unknown us Not In System Provider LAB URINE ORDERABLES Nicky l Result * Hemoglobin A1c (08/02/2024 8:31 AM EDT) Blood Venous blood specimen / Unknown us Not In System Provider LAB BLOOD ORDERABLES Nicky l Result * CBC (08/02/2024 8:29 AM EDT) Blood Venous blood specimen / Unknown us Not In System Provider LAB BLOOD ORDERABLES Nicky l Result * Ferritin (08/02/2024 8:29 AM EDT) Blood Venous blood specimen / Unknown us Not In System Provider LAB BLOOD ORDERABLES Nicky l Result * Renal Function Panel (08/02/2024 8:29 AM EDT) Blood Venous blood specimen / Unknown us Not In System Provider LAB BLOOD ORDERABLES Nicky l Result * Iron And Total Iron Binding Capacity (08/02/2024 8:29 AM EDT) Blood Venous blood specimen / Unknown us Not In System Provider LAB BLOOD ORDERABLES Nicky l Result documented in this encounter Visit Diagnoses Not on filedocumented in this encounter Additional Health Concerns Assessment Noted Time PHQ-9 Depression Total Score: 3 03/08/20 24 12:57 PM EDT documented as of this encounter Care Teams Data Warehousing Manager Relationship Specialty Start Date End Date Brendon Jackson PA-C [address] [place] [address] PCP - General Family Medicine 02/27/24 Rosa Guthrie RN [address] [place] [address] Grab Jack Man 05/07/24 Fabricio Samaniego Dentist 10/07/22 documented as of this encounter
--- OUTSIDE RECORDS SUMMARY | 2025-08-08 18:27 | XMS_ITS | Encounter Summary ---
Author Organization [employer] Address [address] [facility] 7t [place] [address] Care Team Providers Care Weed Burner Name Role Phone Brendon Jackson PA-C Primary Care Provider + [phone] Rosa Guthrie RN Unavailable Encounter Details Date Type Department Care Team (Late st Contact Info) Description 07/05/2024 Orders Only [facility] [address] [place] [address] Provider, Not In System Social [...] Description 09/26/2025 12:40 PM EST Office Visit [facility] [address] [facility] [address] [place] [address] Brendon Jackson PA-C [address] [place] [address] documented as of this encounter Procedures Procedure Name Priority Date/Time Associated Diagnosis Comments CARDIAC ECHO COMPLETE Routine 07/03/2024 1:51 PM EDT documented in this encounter Results * Cardiac Echo Complete (07/03/2024 1:51 PM EDT) us Not In System Provider CV ECHO PROCEDURES Final Result documented in this encounter Visit Diagnoses Not on filedocumented in this encounter Additional Health Concerns Assessment Noted Time PHQ-9 Depression Total Score: 3 03/08/20 24 12:57 PM EDT documented as of this encounter Care Teams Weed Burner Relationship Specialty Start Date End Date Brendon Jackson PA-C [address] [place] [address] PCP - General Family Medicine 02/27/24 Rosa Guthrie RN [address] [place] [address] Analysis Tester 05/07/24 Fabricio Samaniego Dentist 10/07/22 documented as of this encounter
--- OUTSIDE RECORDS SUMMARY | 2025-08-08 18:27 | XMS_ITS | Encounter Summary ---
Author Organization [facility] Address [address] [facility] [address] [place] [address] Phone Care Team Providers Care Entry Level Drafter Name Role Phone Cassandra Roman MD Primary Care Provider [phone] Cassandra Roman MD Primary Care Provider [phone] Cassandra Roman MD Primary Care Provider [phone] Encounter Details Date Type Department Care Team (Late st Contact Info) Description 04/30/2024 Procedure Pass [facility] [place] [place] [address] Social History Tobacco Use Types Packs/Day Years [...] Info) Description 05/09/2025 Procedure Pass Echo Lab [address] [place] [address] 08/09/2025 2:00 PM EDT Appointment Echo Lab [address] [place] [address] Aarti Rose DNP [address] [place] [address], [address] [address] [email or web address] 08/13/2025 2:30 PM EDT Office Visit [facility] [address] 3[address] Floor, [address] [place] [address] Aarti Rose DNP [address] [place] [address], [address] [address] [email or web address] documented as of this encounter Visit Diagnoses Not on filedocumented in this encounter Care Teams Entry Level Drafter Relationship Specialty Start Date End Date Cassandra Roman MD [email or web address] PCP - General Family Medicine 03/07/24 4 Cassandra Roman MD [email or web address] PCP - General Family Medicine 05/22/24 5 Cassandra Roman MD [address] [place] [address] [email or web address] PCP - General Family Medicine 05/06/25 documented as of this encounter Additional Source Comments The information contained in this document represents components of the legal health record. It is not the complete legal health record.[facility]
--- OUTSIDE RECORDS SUMMARY | 2025-08-08 18:27 | XMS_ITS | Encounter Summary ---
Author Organization [facility] [place], Address [address] [place] [address] Phone Care Team Providers Care Advertisement Distributor Name Role Phone Brendon Jackson Primary Care Provider [phone] Encounter Details Date Type Department Care Team (Late st Contact Info) Description 08/06/2024 Documentation Only [facility] [address] [place] [address] Florinda Mcclure [address] [place] [address] [phone] Social History Tobacco Use Types Packs/Day Years [...] Visit [facility] Mu Dr José Miguel [address] [place] [address] Yan Epstein MD [address] [place] [address] [place] [address] documented as of this encounter Visit Diagnoses Not on filedocumented in this encounter Care Teams Advertisement Distributor Relationship Specialty Start Date End Date Brendon Jackson [address] [place] [address] [place] [address] PCP - General 02/06/25 documented as of this encounter
--- OUTSIDE RECORDS SUMMARY | 2025-08-08 18:27 | XMS_ITS | Encounter Summary ---
Author Organization [facility] [place], Address [address] [place] [address] Phone Care Team Providers Care Shipper/Receiver Name Role Phone Brendon Jackson Primary Care Provider [phone] Reason for Visit * Reason Comments Med Change Request Encounter Details Date Type Department Care Team (Late Contact Info) Description 03/07/2024 Refill [facility] [place], [address] [address] Yan Epstein MD [address] [place] [address] [place] [address] Social History Tobacco Use Types [...] Visit [facility] - Mu [address] [place] [phone] Yan Epstein MD [address] [place] [address] [place] [address] documented as of this encounter Visit Diagnoses Not on filedocumented in this encounter Care Teams Shipper/Receiver Relationship Specialty Start Date End Date Brendon Jackson [address] [place] [address] PCP - General 02/06/25 documented as of this encounter
--- OUTSIDE RECORDS SUMMARY | 2025-08-08 18:27 | XMS_ITS | Encounter Summary ---
Author Organization [facility] [place], Address [address] [place] [address] Phone Care Team Providers Care Instructional Interventionist Name Role Phone Brendon Jackson Primary Care Provider [phone] Encounter Details Date Type Department Care Team (Late st Contact Info) Description 03/23/2024 Documentation Only [facility] [address] [place] [address] Florinda Mcclure [address] [place] [address] [phone] Social History Tobacco Use Types Packs/Day Years [...] Visit [facility] Mu Dr José Miguel [address] [place] [phone] Yan Epstein MD [address] [place] [address] [place] [address] documented as of this encounter Visit Diagnoses Not on filedocumented in this encounter Care Teams Instructional Interventionist Relationship Specialty Start Date End Date Brendon Jackson [address] [place] [address] [place] [address] PCP - General 02/06/25 documented as of this encounter
--- OUTSIDE RECORDS SUMMARY | 2025-08-08 18:27 | XMS_ITS | Encounter Summary ---
Author Organization [facility] [place], Address [address] [place] [address] Phone Care Team Providers Care Cadmium Liquor Maker Name Role Phone Brendon Jackson Primary Care Provider [phone] Encounter Details Date Type Department Care Team (Late st Contact Info) Description 08/06/2024 Documentation Only [facility] [address] [place] [address] Florinda Mcclure [address] [place] [phone] Social History Tobacco Use Types Packs/Day Years [...] Visit [facility] Mu Dr José Miguel DE [address] [place] [phone] Yan Epstein MD [address] [place] [address] [place] [address] documented as of this encounter Visit Diagnoses Not on filedocumented in this encounter Care Teams Cadmium Liquor Maker Relationship Specialty Start Date End Date Brendon Jackson [address] [place] [address] [place] [address] PCP - General 02/06/25 documented as of this encounter
--- OUTSIDE RECORDS SUMMARY | 2025-08-08 18:27 | XMS_ITS | Encounter Summary ---
Author Organization [facility] Address [address] [place] [address] [place] [phone] Phone Care Team Providers Care Supplier Quality Specialist Name Role Phone Cassandra Roman MD Primary Care Provider Reason for Visit * Reason Comments Med Change Request Encounter Details Date Type Department Care Team (Late st Contact Info) Description 07/31/2025 [facility] [address] [place] [address] 3rd Floor, [address] [place] [address] Aarti Rose DNP [address] [facility], [address] [place] [address] [email or web address] Med Change Request Social History Tobacco Use Types Packs/Day Years [...] on file documented as of this encounter Progress Notes * Nora Altamirano MA - 08/01/2025 8:13 AM EDT Rx reviewed documented in this encounter Plan of Treatment Upcoming Encounters Date Type Department Care Team (Late st Contact Info) Description 05/09/2025 Procedure Pass Echo Lab [address] [place] [address] 08/09/2025 2:00 PM EDT Appointment Echo Lab [address] [place] [address] Aarti Rose DNP [address] [place] [address], [address] [address] [email or web address] 08/13/2025 2:30 PM EDT Office Visit [facility] [address] [place] [address] 3rd Floor, [address] [place] [address] Aarti Rose DNP [address] [place] [address], [address] [address] [email or web address] documented as of this encounter Visit Diagnoses Diagnosis Type 2 diabetes mellitus with stage 3a chronic kidney disease, without long-term current use of insulin documented in this encounter Care Teams Supplier Quality Specialist Relationship Specialty Start Date End Date Cassandra Roman MD [address] [place] [address] MITZI Miner [address] [email or web address] PCP - General Family Medicine 05/06/25 documented as of this encounter Additional Source Comments The information contained in this document represents components of the legal health record. It is not the complete legal health record.[facility]
--- OUTSIDE RECORDS SUMMARY | 2025-08-08 18:27 | XMS_ITS | Encounter Summary ---
Author Organization [facility] [place], Address [address] [place] [address] Phone Care Team Providers Care Bleacher Operator Name Role Phone Brendon Jackson Primary Care Provider [phone] Encounter Details Date Type Department Care Team (Late st Contact Info) Description 08/30/2022 Documentation Only [facility] [address] [place] [address] Consuelo Kelly [address] [place] [phone] Social History Tobacco Use Types Packs/Day Years [...] Visit [facility] Dr José Miguel [address] [place] [phone] Yan Epstein MD [address] [place] [address] [place] [phone] documented as of this encounter Visit Diagnoses Not on filedocumented in this encounter Care Teams Bleacher Operator Relationship Specialty Start Date End Date Brendon Jackson [address] [place] [address] [place] [address] PCP - General 02/06/25 documented as of this encounter
--- OUTSIDE RECORDS SUMMARY | 2025-08-08 18:27 | XMS_ITS | Clinical Summary ---
Author Organization [facility] Address [address] [place] [address] Phone Care Team Providers Care Education Specialist Name Role Phone Cassandra Roman MD Primary Care Provider [phone] Allergies Active Allergy Reactions Criticality Noted Date Comments Simvastatin 04/24/2022 Medications aspirin 81 mg Cap Take 81 mg by mouth daily. 04/03/20 22 Active furosemide (LASIX) 40 MG tablet Take 1 tablet (40 mg total) by mouth daily. 30 tablet 03/08/20 24 Active blood-glucose meter kit Use as instructed 1 kit 03/07/20 24 Active blood sugar diagnostic Strp strips 1 each by Miscellaneous route 4 (four) times a day before meals and nightly. 100 strip 03/07/20 24 Active FARXIGA 5 mg tablet Take 5 mg by mouth daily. Active TOUJEO MAX U-300 SOLOSTAR 300 unit/mL (3 mL) InPn Inject 25 Units under the skin 2 (two) times a day. Active omega-3 fatty acids-fish oil 300-1,000 mg Cap TAKE 2 CAPSULE BY MOUTH ONCE PER DAY. 03/23/20 24 Active cholecalcifero l (VITAMIN D3) 25 MCG (1,000 unit) tablet Take 50 mcg by mouth. 05/07/20 24 Active pravastatin (PRAVACHOL) 80 MG tablet take 1 tablet (80 mg total) by mouth at bedtime 03/14/20 25 Active RAMON 2ND GEN PEN NEEDLE 32 gauge x NdleIndication s:Type 2 diabetes mellitus with stage 3a chronic kidney disease, without long-term current use of insulin Inject 2 each under the skin daily. 6 each 3 05/09/20 25 Active BRILINTA 90 mg Tab Take 1 tablet (90 mg total) by mouth 2 (two) times a day. 180 tablet 3 07/15/20 25 Active sacubitriL-glendy sartan (ENTRESTO) 24-26 mg per tablet Take 1 tablet by mouth 2 (two) times a day. DISCONTINUE LOSARTAN. 180 tablet 3 07/15/20 25 Active carvedilol (COREG) 3.125 MG tablet Take 1 tablet (3.125 mg total) by mouth 2 (two) times a day. 180 tablet 3 07/15/20 25 Active carvedilol (COREG) 3.125 MG tablet Take 3.125 mg by mouth 2 (two) times a day. 04/03/20 22 025 Discontin ued(Reord er) BRILINTA 90 mg Tab Take 1 tablet (90 mg total) by mouth 2 (two) times a day. 180 tablet 3 05/22/20 24 025 Discontin ued(Reord er) sacubitriL-glendy sartan (ENTRESTO) 24-26 mg per tablet Take 1 tablet by mouth 2 (two) times a day. DISCONTINUE LOSARTAN. 180 tablet 3 05/22/20 24 025 Discontin ued(Reord er) Active Problems Problem Noted Date Diagnosed Date Acute on chronic congestive heart failure, unspecified heart failure type 03/06/2024 Assessment & Plan (03/06/2024 11:44 AM EDT): Pt with reported hx of CHF but no prior episodes he states. New onset SOB with laying flat, overt B lines on US and bedside Echo with sig redueced EF in pt with known CAD and no recent follow up. Concern that ischemia could have caused the tip to CHF this time Card consult Tele ECHO Continue Asa Plavix Lipitor 80 Coreg 3.125 BID ?starting ARB (hx of high K) Continue lasix give 40 more at 2pm and another dose at 9am tomorrow Hope he can be safe for DC tomorrow. PCP apt follow up set for 03/08 at 11am at the [facility]. Hyperkalemia 04/25/2022 Assessment & Plan (04/26/2022 2:57 PM EDT): Review of [facility] labs indicates chronic low-level hyperkalemia between 5.5 [...] again this afternoon after starting bicarbonate therapy Type 2 diabetes mellitus wit h stage 3a chronic kidney disease, without long-term current use of insulin 04/25/2022 Assessment & Plan (05/22/2024 12:35 PM EDT): Poorly controlled diabetes with last A1c 9.7%. He is being established with endocrinology. We discussed the importance of strict glucose control in preventing further cardiac complications. Assessment & Plan (04/30/2024 9:39 AM EDT): Poorly controlled diabetes with last A1c 10.9%. He is being established with endocrinology. We discussed the importance of strict glucose control in preventing further cardiac complications. Assessment & Plan (03/06/2024 11:46 AM EDT): DM 2 Currently out of control Not taking Trulicity due to GI upset at higher dose With polyuria at home and not testing but likely high for some time Start Lantus now SSI now as well Will need to make sure he restarts all 3 home DM meds and has a meter and strips at home (needs rx for such) and takes them such that he can FU with PCP in regards to sugar control Assessment & Plan (04/25/2022 1:49 AM EDT): Holding sulfonylurea and metformin in the setting of acute kidney injury. We will give basal bolus insulin therapy. Acute kidney injury superimposed on chronic kidn ey disease 04/25/2022 Assessment & Plan (04/26/2022 2:57 PM EDT): Resolving. Likely a prerenal azotemia secondary to diarrhea. Probably some contribution from Demadex as well. We will give IV fluids, avoid nephrotoxic medications and monitor renal function. Nephrology was consulted. Essential hypertension 04/25/2022 Assessment & Plan (05/09/2025 3:09 PM EDT): Blood pressure is well controlled on GDMT therapy. No changes in management. Assessment & Plan (04/30/2024 9:38 AM EDT): Well-controlled. Assessment & Plan (04/25/2022 1:48 AM EDT): Hemodynamically stable. Continue carvedilol with hold parameters. Hold off on lisinopril in the setting of acute kidney injury. Hyperlipidemia 04/25/2022 Assessment & Plan (05/22/2024 12:35 PM EDT): Recent LDL 62 mg/dL. Continue atorvastatin 80 mg daily. Assessment & Plan (04/30/2024 9:39 AM EDT): No recent lipid panel on file. Goal LDL should be less than 55 mg/dL. He is instructed not to take 2 statins. He will discontinue pravastatin and stay on atorvastatin 80 mg daily. lipid panel ordered today. Assessment & Plan (04/25/2022 1:48 AM EDT): He has been mistakingly taking atorvastatin AND pravastatin after discharge from [facility]. He was instructed that he is only supposed to be taking atorvastatin. Ischemic cardiomyopathy 04/25/2022 Overview (04/25/2022): Reduced EF and impaired relaxation on TTE 04/02/2022 Assessment & Plan (05/09/2025 3:08 PM EDT): EF has improved to 35-40% and is feeling well overall. He is on good GDMT on carvedilol, farxiga, furosemide, and Entresto. He is tolerating his medications well. Pt's blood pressure is on the low end of normal and will not tolerate any increases in his medications. Will continue current management and repeat an echo in 3 months. Plan: Continue carvedilol Continue farxiga Continue furosemide Continue Entresto Echo on 3 months Follow-up after imaging Assessment & Plan (05/22/2024 12:35 PM EDT): Most recent LVEF 25%. His GDMT includes Farxiga (reduced dose 5 mg), furosemide 40 mg daily, Entresto 24-26 mg twice daily. He is well compensated on exam. He will have a repeat BMP drawn today, as he had a previous KELLY while on lisinopril. He is experiencing some symptoms of orthostatic hypotension since starting Entresto and BP today is low normal. Would caution up titration at this time, especially with unknown renal function since starting the medication. Could consider spironolactone, but would likely drop BP as well. Repeat echo ordered in 06/2024 to reassess EF. If persistently less than 35%, will need EP consultation for ICD implantation. Assessment & Plan (04/30/2024 9:43 AM EDT): Most recent LVEF 25%. His GDMT includes Farxiga (reduced dose 5 mg) and furosemide 40 mg daily. He is well compensated on exam. He had a previous KELLY in the setting of dehydration and hypovolemia, after which his lisinopril was discontinued. His creatinine has been stable and he follows with Dr. Epstein regularly. Pending updated labs, can consider trial of Entresto 24-26 mg twice daily. I've asked him to reach out to Dr. Epstein to inquire about BLOSSOM/ARB/ARNi as well. Discussed other medical therapy including beta-blockers and spironolactone. As previously discussed, he is unsure if he is on a beta-kaley at this point. He has been very confused with all of his medication changes. Will readdress this over the phone. He has not had any labs since his hospital discharge. For now, will await updated labs and updated medication list before starting anything new. Repeat echo ordered in 06/2024 to reassess EF. If persistently less than 35%, will need EP consultation for ICD implantation. Assessment & Plan (04/25/2022 1:48 AM EDT): Holding diuretics in the setting of acute kidney injury. Obesity 04/25/2022 Stage 3a chronic kidney disease 04/25/2022 Overview (04/25/2022): Baseline creatinine 1.5 GFR 50 Coronary artery disease 04/25/2022 Overview (04/25/2022): Follows with [facility] [facility]. He is s/p PCI 2001 and 03/31/2022 Assessment & Plan (05/09/2025 3:10 PM EDT): S/p previous stenting. Pt denies CP and SOB. He continues on aspirin and brilinta without issue. He is also on pravastatin and tolerating well. No changes in management. Plan: Continue aspirin Continue Brilinta Continue pravastatin Assessment & Plan (05/22/2024 12:32 PM EDT): Underwent catheterization on 03/16/2024 which demonstrated severe in-stent restenosis of his RCA, which was restented. He has diffuse CAD elsewhere, detailed above. His GDMT includes carvedilol 3.125 mg twice daily, atorvastatin 80 mg, aspirin 81 mg, Brilinta 90 mg twice daily. Continue aspirin indefinitely and Brilinta for at least 12 months post PCI. He is starting cardiac rehab soon with [facility]. Assessment & Plan (04/30/2024 9:41 AM EDT): Underwent catheterization on 03/16/2024 which demonstrated severe in-stent restenosis of his RCA, which was restented. He has diffuse CAD elsewhere, detailed above. We discussed medical therapy with beta-blockers, high intensity statin, and anti-platelets. At this time, he does not know if he is on carvedilol. He thinks this is the medication that is making him feel dizzy when taken with Brilinta. Could consider trying low-dose metoprolol in place of carvedilol. I have asked him to stop pravastatin and only take atorvastatin 80 mg daily. Continue aspirin indefinitely and Brilinta for at least 12 months post PCI. I will call him later today or tomorrow to accurately update his med list. Assessment & Plan (04/25/2022 1:47 AM EDT): Asymptomatic. Heart catheterization 03/31/2022 for STEMI with RCA stent deployment in 100% occluded vessel. Also has 80% occlusion in OM1, LCx; 90% occlusion in D1 and 99% occlusion in mid LAD. It was unclear from review of the records whether there was a planned staged procedure with correction of the high-grade LAD stenosis. Consideration could be given to contacting [place] [facility]ology, but he is supposed to be following up with them as an outpatient. We will continue with his dual antiplatelet therapy. Resolved Problems Problem Noted Date Diagnosed Date Resolved Date Intractable diarrhea 04/25/2022 024 Assessment & Plan (04/26/2022 10:40 AM EDT): Started after discharge from [facility] in late March. He was restarted on metformin. He had tolerated this previously. He was also started on torsemide. It is possible that the combination of torsemide and metformin is causing his diarrhea. We will hold off on both of these medications. 04/26: Pt denies any diarrhea today. Encounters Date Type Department Care Team Description 07/31/2025 Refill [facility] [address] [facility], [address] [place] [address] Aarti Rose DNP Med Change Request 07/15/2025 Refill [facility] [address] Floor, [address] [place] [address] Leticia Enamorado MA Medication Refill 07/15/2025 Orders Only [facility] [address] Floor, [address] [place] [address] Aarti Rose DNP 07/15/2025 Telephone [facility] [address] Floor, [address] [place] [address] Aarti Rose DNP 05/09/2025 2:00 PM EDT Office Visit [facility] [address] Floor, [address] [place] [address] Aarti Rose DNP Type 2 diabetes mellitus with stage 3a chronic kidney disease, without long-term current use of insulin (Primary Dx); Ischemic cardiomyopathy; Essential hypertension; Coronary artery disease involving la posta coronary artery of la posta heart without angina pectoris from Last 3 Months Family History Medical History Relation Comments Cancer Brother Heart disease Father Cancer Mother Heart disease Sister Relation Status Comments Brother Father Mother Sister Alive Social History Tobacco Use Types Packs/Day Years Used Date Smoking Tobacco: Never Smokeless Tobacco: Never Tobacco Cessation:Counseling Given: Not Answered Alcohol Use Standard Drinks/Week Comments Not Currently [...] PM EDT Sexual Orientation Not on file Last Filed Vital Signs Vital Sign Reading Time Taken Comments Blood Pressure 104/60 05/09/2025 2:14 PM EDT Pulse 59 05/09/2025 2:14 PM EDT Temperature 36.5 C (97.7 F) 03/07/2024 11:49 AM EDT Respiratory Rate 18 03/07/2024 11:49 AM EDT Oxygen Saturation 98% 05/09/2025 2:14 PM EDT Inhaled Oxygen Concentration - - Weight 110.2 kg (243 lb) 05/09/2025 2:14 PM EDT Height 177.8 cm (5' 10 ) 05/09/2025 2:14 PM EDT Body Mass Index 34.87 05/09/2025 2:14 PM EDT Plan of Treatment Upcoming Encounters Date Type Department Care Team (Citlali villalobos Contact Info) Description 05/09/2025 Procedure Pass Echo Lab [address] [place] [address] 08/09/2025 2:00 PM EDT Appointment Echo Lab [address] [place] [address] Aarti Rose DNP [address] [place] [address], [address] [place] [address] 08/13/2025 2:30 PM EDT Office Visit [facility] [address]rd Floor, [address] [place] [address] Aarti Rose DNP [address] [place] [address], [address] [address] Health Maintenance Due Date Last Done Comments Adult Td,Tdap Booster 1955 DEPRESSION SCREENING 1967 HEPATITIS C SCREENING 1973 PNEUMOCOCCAL VACCINES (50+ years) (1 of 2 - PCV) 1974 COLOGUARD 2000 COLONOSCOPY 2000 COLORECTAL CANCER SCREENING 2000 FIT TEST 2000 FOBT 2000 SIGMOIDOSCOPY 2000 VIRTUAL COLONOSCOPY 2000 ZOSTER VACCINES (1 of 2) 2005 RSV VACCINE (1 - Risk 60-74 years 1-dose series) 2015 DIABETIC EYE EXAM 04/25/2022 LIPID PANEL 04/30/2025 04/30/2024, 04/08, 03/07/2024 HEMOGLOBIN A1C 05/08/2025 02/06/2025, 07/2025, 08/02/2024, Additional history exists INFLUENZA VACCINE (#1) 2025 COVID-19 VACCINE ( - 2024- season) 2025 09/22/2021, 02/13/2021, 01/16/2021 BLOOD PRESSURE 11/09/2025 05/09/2025 SMOKING STATUS SCREENING (Once After 26 Yrs) Completed 09/12/2024 HEPATITIS A VACCINES Aged Out No long er eligible based on patient's age to complete this topic HIB VACCINES Aged Out No longer eligi ble based on patient's age to complete this topic MENINGOCOCCAL VACCINES (ACWY) Aged Out No longer eligible based on patient's age to complete this topic MENINGOCOCCAL VACCINES (B) Aged Out N o longer eligible based on patient's age to complete this topic Medical Devices Not on file Procedures Procedure Name Priority Date/Time Associated Diagnosis Comments HEMOGLOBIN A1C Routine 02/06/2025 2:08 PM EDT Type 2 diabetes mellitus with stage 3a chronic kidney disease, without long-term current use of insulin LIPID PANEL Routine 04/30/2024 9:22 AM EDT Ischemic cardiomyopathy from Last 3 Months or Most Recently Relevant to Health Maintenance Results * (ABNORMAL) Hemoglobin A1c (02/06/2025 2:08 PM EDT) HEMOGLOBIN A1C 9.5(H) 4.3 - 5.8 % [facility] Blood 02/06/2025 2:08 PM EDT 02/06/2025 2:17 PM EDT us Yan Epstein MD LAB BLOOD ORDERABLES Final Resul t [address] [address] * Lipid panel (04/30/2024 9:22 AM EDT) HDL 29 mg/dL [facility] Comment: Interpretation <40 mg/dL: Low HDL cholesterol (major risk factor for CHD) Greater than or equal to 60 mg/dL: High HDL cholesterol ( negative risk factor for CHD) HDL - cholesterol is affected by a number of factors, e.g. smoking, excerise, hormones, sex and age. CHOLESTEROL 121 0 - 240 mg/dL [facility] TRIGLYCERIDES 151 30 - 160 mg/dL [facility] LDL 62 50 - 129 mg/dL [facility] Comment: LDL levels in terms of risk for coronary heart disease: <100 mg/dL: Optimal 100-129 mg/dL: Near or above optimal 130-159 mg/dL: Borderline high 160-189 mg/dL: High >190 mg/dL: Very High CARDIAC RISK RATIO 4.2 3.4 - 5.0 C [facility] Blood 04/30/2024 9:22 AM EDT 04/30/2024 9:32 AM EDT us Elizabeth Rodriguez PA-C LAB BLOOD ORDERABLES Fi nal Result [facility] [address] [place] [address] from Last 3 Months or Most Recently Relevant to Health Maintenance Insurance MEDICARE PART A & B MEDICARE PART A & B MEDICARE PART A & B MEDICARE PART A & B MEDICARE PART A & B MEDICARE PART A & B MEDICARE PART A & B MEDICARE PART A & B MEDICARE PART A & B Advance Directives For more information, please contact: [phone] (9AM - 5PM [facility], Tuesday-Tuesday) * Full Code (Latest Code Status on File) Date Activated Date Inactivated Comments 03/06/2024 12:27 PM Question Answer Comments Code Status Confirmed With: Patient * Full Code Date Activated Date Inactivated Comments 04/25/2022 1:37 AM 03/06/2024 12:27 PM Question Answer Comments Code Status Confirmed With: Patient Care Teams Education Specialist Relationship Specialty Start Date End Date Cassandra Roman MD [address] [facility] [place] [address] [email or web address] PCP - General Family Medicine 05/06/25 Additional Source Comments The information contained in this document represents components of the legal health record. It is not the complete legal health record.[facility]
--- OUTSIDE RECORDS SUMMARY | 2025-08-08 18:27 | XMS_ITS | Encounter Summary ---
Author Organization [employer] Address [address] [place] [address] 7[address] [place] [address] Care Team Providers Care Icer Machine Operator Name Role Phone Brendon Jackson PA-C Primary Care Provider + [phone] Surekha Marie Unavailable Rosa Guthrie RN Unavailable Encounter Details Date Type Department Care Team (Late st Contact Info) Description 05/01/2024 Orders Only [facility] Information Management [address] [id number] Provider, Not In System Social History Tobacco [...] the past 12 months, has t he [employer], gas, oil or water company threatened to [...] Description 09/26/2025 12:40 PM EST Office Visit [facility] [address] [place] [address] Brendon Jackson PA-C [address] [place] [address] documented as of this encounter Procedures Procedure Name Priority Date/Time Associated Diagnosis Comments HEMOGLOBIN A1C Routine 04/30/2024 8:02 AM EDT LIPID PANEL, STANDARD Routine 04/30/2024 8:01 AM EDT BASIC METABOLIC PANEL Routine 04/30/2024 8:00 AM EDT CBC WITH AUTO DIFFERENTIAL Routine 04/30/2024 7:58 AM EDT documented in this encounter Results * Hemoglobin A1c (04/30/2024 8:02 AM EDT) Blood Venous blood specimen / Unknown us Not In System Provider LAB BLOOD ORDERABLES Edit ed Result - Final * Lipid Panel, Standard (04/30/2024 8:01 AM EDT) Blood Venous blood specimen / Unknown us Not In System Provider LAB BLOOD ORDERABLES Edit ed Result - Final * Basic Metabolic Panel (04/30/2024 8:00 AM EDT) Blood Venous blood specimen / Unknown us Not In System Provider LAB BLOOD ORDERABLES Edit ed Result - Final * CBC auto differential (04/30/2024 7:58 AM EDT) Blood Venous blood specimen / Unknown us Not In System Provider LAB BLOOD ORDERABLES Edit ed Result - Final documented in this encounter Visit Diagnoses Not on filedocumented in this encounter Additional Health Concerns Assessment Noted Time PHQ-9 Depression Total Score: 3 03/08/20 24 12:57 PM EDT documented as of this encounter Care Teams Icer Machine Operator Relationship Specialty Start Date End Date Brendon Jackson PA-C [address] [facility] [place] [address] PCP - General Family Medicine 02/27/24 Surekha Marie [address] [facility] [place] [address] Community Health Worker 03/09/2405/22 Rosa Guthrie, ELZBIETA [address] [place] [address] Flight Data Technician 05/07/24 Fabricio Samaniego Dentist 10/07/22 documented as of this encounter
--- OUTSIDE RECORDS SUMMARY | 2025-08-08 18:27 | XMS_ITS | Encounter Summary ---
Author Organization [facility] Address [address] [facility] [address] [place] [address] Phone Care Team Providers Care Solar Energy Consultant And Designer Name Role Phone Cassandra Roman MD Primary Care Provider Cassandra Roman MD Primary Care Provider [phone] Encounter Details Date Type Department Care Team (Late st Contact Info) Description 09/12/2024 Procedure Pass Echo Lab [address] [place] [address] Social History Tobacco Use Types Packs/Day Years [...] Description 05/09/2025 Procedure Pass [facility] [address] [place] [address] 08/09/2025 2:00 PM EDT Appointment Echo Lab [address] [place] [address] Aarti Rose DNP [address] [place] [address], [address] [address] [email or web address] 08/13/2025 2:30 PM EDT Office Visit [facility] [address] 3[address] Floor, [address] [place] [address] Aarti Rose DNP [address] [place] [address], [address] [address] [email or web address] documented as of this encounter Visit Diagnoses Not on filedocumented in this encounter Care Teams Solar Energy Consultant And Designer Relationship Specialty Start Date End Date Cassandra Roman MD [email or web address] PCP - General Family Medicine 05/22/24 5 Cassandra Roman MD [address] [place] [address] [email or web address] PCP - General Family Medicine 05/06/25 documented as of this encounter Additional Source Comments The information contained in this document represents components of the legal health record. It is not the complete legal health record.[facility]
--- OUTSIDE RECORDS SUMMARY | 2025-08-08 18:27 | XMS_ITS | Encounter Summary ---
Author Organization [employer] Address [address] [place] [address] 7[address] [place] [address] Care Team Providers Care Textile Machinery Instructor Name Role Phone Brendon Jackson PA-C Primary Care Provider + [phone] Rosa Guthrie RN Unavailable Encounter Details Date Type Department Care Team (Late st Contact Info) Description 03/04/2025 Telephone [facility] [address] [facility] [address] [place] [address] Brendon Jackson PA-C [address] [place] [address] Social History Tobacco Use Types Packs/Day Years [...] t he electric, gas, oil or water [employer] threatened to shut off services in your home? No 03/08/2024 Depression Answer Date Recorded Patient Health Questionnaire-2 Score 0 03/08/2024 Sex and Gender Information Value Date Recorded Sex Assigned at Male 11/10/2022 8:55 AM EST Legal Sex Male 8:38 PM EST Gender Identity Male 09/17/2022 9:06 PM EST Sexual Orientation Choose not to disclose 2021 9:06 PM EST documented as of this encounter Miscellaneous Notes * Telephone Encounter - Tabitha Parker - 03/04/2025 3:11 PM EDT Pt says he's out of needle after tonight. He req to refill it as soon as possible insulin pen needle 32G x 4 mm misc documented in this encounter Plan of Treatment Upcoming Encounters Date Type Department Care Team (Late st Contact Info) Description 09/26/2025 12:40 PM EST Office Visit [address] [place] [address] Brendon Jackson PA-C [address] [place] [address] documented as of this encounter Visit Diagnoses Not on filedocumented in this encounter Additional Health Concerns Assessment Noted Time PHQ-9 Depression Total Score: 3 03/08/20 24 12:57 PM EDT documented as of this encounter Care Teams Textile Machinery Instructor Relationship Specialty Start Date End Date Brendon Jackson PA-C [address] [place] [address] PCP - General Family Medicine 02/27/24 Rosa Guthrie RN [address] [place] [address] [place] 05/07/24 Fabricio Samaniego Dentist 10/07/22 documented as of this encounter
--- OUTSIDE RECORDS SUMMARY | 2025-08-08 18:27 | XMS_ITS | Encounter Summary ---
Author Organization [facility], Address [address] [place] [address] Phone Care Team Providers Care Supervisor [employer] Name Role Phone Brendon Jackson Primary Care Provider [phone] Encounter Details Date Type Department Care Team (Late st Contact Info) Description 05/08/2024 Documentation Only [facility] [address] [place] [address] Florinda Mcclure [address] [place] [phone] Social History Tobacco Use Types Packs/Day Years [...] Visit [facility] José Miguel DE [place] [address] [place] [phone] Yan Epstein MD [address] [place] [address] [place] [address] documented as of this encounter Visit Diagnoses Not on filedocumented in this encounter Care Teams Supervisor [employer] Relationship Specialty Start Date End Date Brendon Jackson [address] [place] [address] [place] [address] PCP - General 02/06/25 documented as of this encounter
--- OUTSIDE RECORDS SUMMARY | 2025-08-08 18:27 | XMS_ITS | Encounter Summary ---
Author Organization [employer] Address [address] [place] [address] [address] [place] [address] Care Team Providers Care Senior Executive Assistant Name Role Phone Brendon Jackson PA-C Primary Care Provider + [phone] Rosa Guthrie RN Unavailable Encounter Details Date Type Department Care Team (Late st Contact Info) Description 11/21/2024 Telephone [facility] [address] [place] [address] Brendon Jackson PA-C [address] [place] [address] Social History Tobacco Use Types Packs/Day Years [...] the past 12 months, has t he [employer] gas, oil or water [employer] threatened to shut off services in your [...] encounter Miscellaneous Notes * Telephone Encounter - To Owens [place] - 11/27/2024 3:07 PM EST Form refaxed to number listed. * Telephone Encounter - Cheli Heath LPN - 11/27/2024 2:26 PM EST It appears this form is in his chart completed under media tab and just needs to be refaxed. * Telephone Encounter - Cheli Heath LPN - 11/22/2024 1:38 PM EST Contacted to inform we have not received this and provided our new fax number. * Telephone Encounter - Natty Rivas - 11/21/2024 11:13 AM EST Looking for a signed order fo the [facility] ej 3. Please sign and return the form to fax # [phone] documented in this encounter Plan of Treatment Upcoming Encounters Date Type Department Care Team (Late st Contact Info) Description 09/26/2025 12:40 PM EST Office Visit [facility] [address] [place] [address] Brendon Jackson PA-C [address] [facility] [place] [address] documented as of this encounter Visit Diagnoses Not on filedocumented in this encounter Additional Health Concerns Assessment Noted Time PHQ-9 Depression Total Score: 3 03/08/20 24 12:57 PM EDT documented as of this encounter Care Teams Senior Executive Assistant Relationship Specialty Start Date End Date Brendon Jackson PA-C [address] [facility] [place] [address] PCP - General Family Medicine 02/27/24 Rosa Guthrie, RN [address] [place] [phone] [employer] 05/07/24 Fabricio Samaniego Dentist 10/07/22 documented as of this encounter
--- OUTSIDE RECORDS SUMMARY | 2025-08-08 18:27 | XMS_ITS | Clinical Summary ---
Author Organization [employer] Address [address] [place] [address] 7[address] [place] [address] Care Team Providers Care Car Pre Cooler Name Role Phone Brendon Jackson PA-C Primary Care Provider + [phone] Rosa Guthrie RN Unavailable Allergies Active Allergy Reactions Criticality Noted Date Comments Atorvastatin Drowsiness Medium 05/03/2022 Other reaction(s): myalgias Statins Other,Drowsiness Medium 04/26/2014 Other reaction(s): myalgia, elevated CPK, Other (see comments) Medications Aspirin (Vazalore) 81 MG capsule Take 81 mg by mouth in the morning. 04/03/20 22 Active Brilinta 90 MG tablet Take 90 mg by mouth 2 times daily. 03/17/20 24 Active fish oil (Selma-3) 500 MG capsuleIndicati ons:Type 2 diabetes mellitus without complication, with long-term current use of insulin (HCC) Take 2 capsules (1,000 mg) by mouth Once per day. 60 capsule 2 05/07/20 24 Active cholecalciferol (Vitamin D-3) 25 MCG (1000 UT) tabletIndicatio ns:Type 2 diabetes mellitus without complication, with long-term current use of insulin (HCC) Take 2 tablets (50 mcg) by mouth Once per day. 2 tablet 11 05/07/20 24 Active sacubitril-vals robb (Entresto) 24-26 MG tablet Take 1 tablet by mouth 2 times daily. 60 tablet 06/06/20 24 Active carvedilol (Coreg) 3.125 MG tablet TAKE 1 TABLET BY MOUTH TWICE A DAY 180 tablet 1 03/27/20 25 Active dapagliflozin (Farxiga) 5 MG Take 1 tablet (5 mg) by mouth Once per day. 90 tablet 06/07/20 25 025 Active furosemide (Lasix) 40 MG tablet Take 1 tablet (40 mg) by mouth Once per day. 90 tablet 06/07/20 25 Active insulin glargine (Toujeo Max Solostar, 2 unit dial,) 300 UNIT/ML injectionIndica tions:Type 2 diabetes mellitus without complication, with long-term current use of insulin ([facility]) Give 25 units twice daily. 15 mL 1 06/07/20 25 Active pravastatin (Pravachol) 80 MG tablet TAKE 1 TABLET BY MOUTH EVERY DAY 90 tablet 07/15/20 Active insulin pen needle 32G x 4 mm miscIndications :Type 2 diabetes mellitus without complication, with long-term current use of insulin ([facility]) Inject insulin daily in the morning and in the evening; Sig: E11.9 diabetes type 2 200 each 12 08/07/20 25 026 Active Continuous Glucose Sensor (FreeStyle Yolanda 3 Plus Sensor) misc 1 each every 15 days. Active Tirzepatide (Mounjaro) 2.5 MG/0.5ML solution auto-injectorIn dications:Type 2 diabetes mellitus with stage 3 chronic kidney disease, with long-term current use of insulin, unspecified whether stage 3a or 3b CKD ([facility]) Inject 2.5 mg under the skin 1 (one) time per week for 28 days. After take 3rd dose, call for dose increase. 2 mL 08/07/20 25 025 Active Continuous Glucose Undercoater (Dexcom G7 Undercoater) deviceIndicatio ns:Type 2 diabetes mellitus treated with insulin ([facility]) Inject 1 each under the skin every 10 (ten) days. 1 each 2 11/15/19 25 025 Discontinued(Th erapy completed) insulin pen needle 32G x 4 mm miscIndications :Type 2 diabetes mellitus without complication, with long-term current use of insulin ([facility]) Inject insulin daily in the morning and in the evening; Sig: E11.9 diabetes type 2 200 each 12 04/04/20 25 025 Discontinued(Re order (will not trigger notification to Pharmacy)) pravastatin (Pravachol) 80 MG tablet Take 1 tablet (80 mg) by mouth Once per day. 90 tablet 06/07/20 25 025 Discontinued Dulaglutide (Trulicity) 1.5 MG/0.5ML solution auto-injectorIn dications:Type 2 diabetes mellitus treated with insulin (HCC) Inject 1.5 mg under the skin 1 (one) time per week. Dose increase. Please call if having side effects--abd ominal pain, vomiting, diarrhea. 2 mL 07/01/20 25 025 Discontinued(In effective) Active Problems Problem Noted Date Diagnosed Date Type 2 diabetes mellitus treated with insulin Assessment & Plan (06/11/2025 7:46 AM EDT): A1c worse today 12.9 Check that his basal insulin is really 25 bid, I thought his click pen only did multiples of 2 Should increase to 28 bid (start with 26 bid if only on 25 bid currently) CGM placed at 8.4.25 visit Farxiga recommended by cardiology--refill Restart Trulicity Close f/u with nursing on glucose. 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 Thinks he has glucometer prefers not to use Continue Trulicity max dose Keep Farxiga at 5 daily (could be 10 for CKD but up to date says renally adjust down to 5 if treating DM with CKD) Check lipid, last LDL above goal (?cardio also checks) Continue statin Assessment & Plan (06/13/2024 5:07 PM EDT): Stop Trulicity and start Mounjaro 2.5mg weekly. Glucose not at goal, with 91% of glucose readings over 180. Dexcom waiting on insurance approval so should have sensors in next 2 weeks. Given sample G7 sensor. Assessment & Plan (06/06/2024 4:20 PM EDT): Cont insulin, sglt2 inh HFrEF (heart failure with reduced ejection fract ion) 03/22/2024 Assessment & Plan (11/15/2024 2:31 PM EST): He continue on Coreg, Lasix, Entresto from cardiology They will get repeat echo and consider ICD if EF remains < 35% Assessment & Plan (06/06/2024 4:19 PM EDT): Cont coreg, entresto, lasix, atorva, asa 81, brilinta, farxiga Repeat echo and possible ICD per cardiology Assessment & Plan (04/06/2024 12:08 PM EDT): Looks pretty euvolemic on the surface but weight is concerning Started insulin 4 days ago, I don't think that entirely explains 6 lb weight gain over last 2 wks Although notes he's eating more He is dyspneic on exertion, trying to walk for exercise We will recheck BMP Mg today Cont Lasix 40 qAM Sent additional 20 for afternoon if over 235 lbs at home (his scale is about 3 lbs manager book than ours) He will call us if using the extra dose more than 3 days Depending on lab results I will call him sooner Assessment & Plan (03/22/2024 12:33 PM EDT): Reportedly EF 25% on echo in hospital GDMT--on SGLT2I, beta kaley Start Losartan 25, faxed med list to nephrology, recheck BMP/Mg at appt in 2 wks Stop Glipizide, don't use sulfonylureas in HFrEF 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 Assessment & Plan (03/22/2024 12:39 PM EDT): NSTEMI 5.10.24 cathed at [facility] with ischemia and infarct of apex, inferior wall Got another TANK to RCA by Dr. Natasha Timmons To see Elizabeth Rodriguez PA-C, [facility], 04.30.24 at 08:00 Told to bring med list Continue asa 81; switched from Plavix to Brilinta at hospitalization; continue Lipitor 80; add fish oil; add Losartan 25; continue Coreg 3.125 bid Stage 3a chronic kidney disease (CMS/HCC) 2023 Assessment & Plan (06/11/2025 7:46 AM EDT): Continues on entresto by cardiology Assessment & Plan (06/06/2024 4:19 PM EDT): Returning to nephro next month Assessment & Plan (04/06/2024 12:04 PM EDT): Seeing Nephrology in July If BMP is alarming fax them results and updated med list Cardiology input is coming in 24 days Assessment & Plan (03/22/2024 12:34 PM EDT): On Lasix 40, Losartan 25 now See HFrEF Iron deficiency anemia secon kaia to inadequate dietary iron intake 03/08/2024 Assessment & Plan (06/06/2024 4:18 PM EDT): Fe and transferrin were lower end in February Recheck with next labs Assessment & Plan (03/08/2024 12:50 PM EDT): I will label this Fe deficiency but there is likely component of CKD I'm still trying to download nephrology note On 03.06.24 admission: Fe 59 TSAT 22 TIBC 268 Ferritin 327 Likely contribution of CHF Repeat with next labs, hold on supplement for now unless nephrology advise otherwise Pure hypertriglyceridemia 03/08/2024 Assessment & Plan (06/06/2024 4:20 PM EDT): On statin and fish oil Assessment & Plan (03/08/2024 12:57 PM EDT): From labs 4.30.24 LDL is still above goal in this high risk patient at 77--consider adding fish oil or niacin TG elevated 204 Total chol is 146 Continue Lipitor 80 Resolved Problems Problem Noted Date Diagnosed Date Resolved Date Abnormal physical evaluation 11/15/2024 08/07/2025 Assessment & Plan (11/15/2024 2:27 PM EST): Foot exam due later this year Alexys--got box, will send with assistance from sister Type 2 diabetes mellitus wit hout complication, without long-term current use of insulin 03/08/2024 06/06/2024 Overview (05/07/2024): May need to consider switch to Mounjaro for larger affect on glucose in hopes of 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 Assessment & Plan (05/07/2024 3:49 PM EDT): Increase Toujeo to 20 units tomorrow and then increase by 2 units every 3 days until fasting glucose is under 130 consistently. Work on lifestyle as discussed, see goals. Podiatry referral for care of toe nails Assessment & Plan (04/06/2024 12:10 PM EDT): Continue Troujeo at 8 u daily per DM RN recs Expects to get to at least 10 Doing well with CGM Trying new cover bandage--advised it needs to be labeled sterile Check glucose if feel ill, tired etc. Hospital if 500 or higher. He's not on short acting insulin Continue Metformin, Trulicity, Farxiga No longer on Glipizide, printed new med list Assessment & Plan (04/03/2024 5:11 PM EDT): Started Toujeo U300 6 units today while here, will take every am. Started Dexcom G7 using warehouse receiver today. 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 Shared decision making. 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 Asked him request results to us Encounters Date Type Department Care Team Description 08/07/2025 11:00 AM EDT Office Visit [address] [phone] Brendon Jackson PA-C Type 2 diabetes mellitus with stage 3 chronic kidney disease, with long-term current use of insulin, unspecified whether stage 3a or 3b CKD (HCC) (Primary Dx); Encounter for immunization; Other fatigue; Type 2 diabetes mellitus without complication, with long-term current use of insulin (HCC) 07/18/[address] [place] [address] Brendon Jackson PA-C 07/12/[address] [place] [address] Brendon Jackson PA-C 07/01/2025 Orders Only [address] [place] [address] Brendon Jackson PA-C Type 2 diabetes mellitus treated with insulin (CMS/HCC) (Primary Dx) 06/10/2025 3:20 PM EDT Clinical Support [address] [place] [address] Brendon Jackson PA-C Type 2 diabetes mellitus treated with insulin (CMS/HCC) 06/09/2025 Results Follow-Up [address] [place] [address] Brendon Jackson PA-C Hemoglobin A1c 06/07/2025 11:00 AM EDT Office Visit [address] [place] [address] Brendon Jackson PA-C Type 2 diabetes mellitus treated with insulin (CMS/HCC) (Primary Dx); Stage 3a chronic kidney disease (CMS/HCC); Screening for depression; Type 2 diabetes mellitus without complication, with long-term current use of insulin (CMS/HCC) 06/04/[address] [place] [address] Brendon Jackson PA-C from Last 3 Months Immunizations Immunization Administration Dates Next Due Influenza, High Dose Seasonal, Preservative Free 08/07/2025 Family History Medical History Relation Name Comments Coronary artery disease Brother Coronary artery disease Father Relation Name Status Comments Brother Father Social History Tobacco Use Types Packs/Day Years Used Date Smoking Tobacco: Never Passive Smoke Exposure: Never Smokeless Tobacco: Never Tobacco Cessation:Counseling Given: Yes Alcohol Use Standard Drinks/Week Comments Not Currently [...] your housing situation today? I have barrera yandy 06/07/[address] you li [...] not to disclose 2021 9:06 PM EST Last Filed Vital Signs Vital Sign Reading Time Taken Comments Blood Pressure 114/68 08/07/2025 11:01 AM EDT Pulse 71 08/07/2025 11:01 AM EDT Temperature 36.4 C (97.6 F) 08/07/2025 11:01 AM EDT Respiratory Rate - - Oxygen Saturation 97% 08/07/2025 11:01 AM EDT Inhaled Oxygen Concentration - - Weight 108 kg (237 lb) 08/07/2025 11:01 AM EDT Height 179.1 cm (5' 10.5 ) 05/07/2024 1:55 PM ED T Body Mass Index 33.53 05/07/2024 1:55 PM EDT Plan of Treatment Upcoming Encounters Date Type Department Care Team (Late st Contact Info) Description 09/26/2025 12:40 PM EST Office Visit [facility] [address] [facility] [address] [place] [phone] Brendon Jackson PA-C [address] [place] [address] Health Maintenance Due Date Last Done Comments CT Colonography 1955 Colonoscopy 1955 Colorectal Cancer Screening 1955 Dental Oral Exam 1955 Dental Prophylaxis 1955 Dental X-Ray: Bitewings 1955 Dental X-Ray: Full Mouth 1955 FIT DNA/Cologuard 1955 FIT 1955 FOBT 1955 Sigmoidoscopy 1955 Eye Exam 1965 Alcohol/Substance Use Screening 1967 Hepatitis C Screening 1973 Pneumococcal Vaccine: 50+ Years (2 of 2 - PCV) 01/02/2010 01/02/2009 RSV Patients and Patients Aged 60 years or older (1 - Risk 60-74 years 1-dose series) 2015 DTaP/Tdap/Td Vaccines (1 - Tdap) 01/13/2016 01/12/2016 Diabetes: Urine Protein Screening 01/25/2025 01/26/2024, 07/05/2022, 03/19/2022, Additional history exists Diabetes: Foot Exam 03/22/2025 03/22/2024 COVID-19 Vaccine ( season) 2025 09/22/2021, 02/13/2021, 01/16/2021 Diabetes: Hemoglobin A1C 11/07/2025 025, 06/07/2025, 02/06/2025, Additional history exists Lipid Panel 11/15/2025 11/15/2024, 04/08, 07/05/2022, Additional history exists Depression Screening 06/07/2026 06/07/2025, 03/08/20 24 SDOH Screening 06/07/2026 06/07/2025 Tobacco Screening 08/07/2026 08/07/2025 Zoster Vaccines Completed 12/21/2024, 09/06/2024 Influenza Vaccine Completed 08/07/2025, , 10/15/2020, Additional history exists HIB Vaccines Aged Out No longer eligi ble based on patient's age to complete this topic HPV Vaccines Aged Out No longer eligi ble based on patient's age to complete this topic Hepatitis A Vaccines Aged Out No long er eligible based on patient's age to complete this topic Hepatitis B Vaccines Aged Out No long er eligible based on patient's age to complete this topic IPV Vaccines Aged Out No longer eligi ble based on patient's age to complete this topic Meningococcal B Vaccine Aged Out No l onger eligible based on patient's age to complete this topic Meningococcal Vaccine Aged Out No yohan rachel eligible based on patient's age to complete this topic RSV under 20 months Aged Out No longe r eligible based on patient's age to complete this topic Rotavirus Vaccines Aged Out No longer eligible based on patient's age to complete this topic Procedures Procedure Name Priority Date/Time Associated Diagnosis Comments HEMOGLOBIN A1C Routine 08/07/2025 11:36 AM EDT Type 2 diabetes mellitus with stage 3 chronic kidney disease, with long-term current use of insulin, unspecified whether stage 3a or 3b CKD (HCC) TSH W/REFLEX TO FT4 Routine 08/07/2025 11:36 AM EDT Other fatigue COMPREHENSIVE METABOLIC PANEL Routine 08/07/2025 11:36 AM EDT Other fatigue HEMOGLOBIN A1C Routine 06/07/2025 11:50 AM EDT Type 2 diabetes mellitus treated with insulin (CMS/HCC) LIPID PANEL WITH REFLEX TO DIRECT LDL Routine 11/15/2024 1:26 PM EST Pure hypertriglyceridemia HM DIABETES: URINE PROTEIN SCREENING Routine 01/26/2024 from Last 3 Months or Most Recently Relevant to Health Maintenance Results * TSH with Reflex to Free T4 (08/07/2025 11:36 AM EDT) TSH w/Reflex to FT4 2.07 0.40 - 4.50 mIU/L [facility] Blood Venous blood specimen / Unknown 08/07/2025 11:36 AM EDT 08/07/2025 11:36 AM EDT Narrative [facility] - 08/08/2025 8:07 AM EDT FASTING:NO FASTING: NO us Brendon Jackson PA-C LAB BLOOD ORDERABLES Final R esult [facility] [address], [place] [address] [facility] [address] [place] [address] * (ABNORMAL) Hemoglobin A1c (08/07/2025 11:36 AM EDT) Only the most recent of2 resultswithin the time period is included. Hemoglobin A1c 12.1(H) <5.7 % [facility] Comment: For someone without known diabetes, a [...] PA-C LAB BLOOD ORDERABLES Final R esult [facility] [address], [place] [address] [employer] [address] [place] [address] * (ABNORMAL) Comprehensive Metabolic Panel (08/07/2025 11:36 AM EDT) Glucose 518(HH) 65 - 139 mg/dL [facility] Comment: Verified by repeat analysis. Non-fasting reference interval Urea Nitrogen (BUN) 34(H) 7 - 25 mg/dL [facility] Creatinine, Serum 1.73(H) 0.70 - 1.35 mg/dL [facility] eGFR 42(L) > OR = 60 mL/min/1. 73m2 [facility] BUN/Creatinine Ratio 20 6 - 22 (calc) [facility] [employer] [facility] Sodium 129(L) 135 - 146 mmol/L [facility] Potassium 4.6 3.5 - 5.3 mmol/L [facility] Chloride 96(L) 98 - 110 mmol/L [facility] Carbon Dioxide 22 20 - 32 mmol/L [facility] [employer] [facility] Calcium 8.8 8.6 - 10.3 mg/dL [facility] Protein, Total 7.3 6.1 - 8.1 g/dL [facility] Albumin 3.9 3.6 - 5.1 g/dL [employer] [facility] [employer] Globulin 3.4 1.9 - 3.7 g/dL (calc) [facility] [employer] Albumin/Globuli n Ratio 1.1 1.0 - 2.5 (calc) [employer] [facility] [employer] Bilirubin, Total 0.6 0.2 - 1.2 mg/dL [facility] Alkaline Phosphatase 97 35 - 144 U/L [facility] [employer] AST 16 10 - 35 U/L [facility] [employer] ALT 22 9 - 46 U/L [facility] Blood Venous blood specimen / Unknown 08/07/2025 11:36 AM EDT 08/07/2025 11:36 AM EDT Narrative [facility] - 08/08/2025 8:07 AM EDT FASTING:NO FASTING: NO Brendon Jackson PA-C LAB BLOOD ORDERABLES Final R esult [facility] [address], [place] [address] [employer] [address] [place] [address] * (ABNORMAL) Lipid Panel with Reflex to Direct LDL (11/15/2024 1:26 PM EST) Cholesterol, Total 130 <200 mg/dL [employer] [facility] [employer] HDL Cholesterol 26(L) > OR = 40 mg/dL [facility] Triglycerides 207(H) <150 mg/dL [facility] Comment: If a non-fasting specimen was collected, consider repeat triglyceride testing on a fasting specimen if clinically indicated. Mustapha et al. J. of Clin. Lipidol. 2015;9:129-169. LDL Cholesterol 74 mg/dL [facility] [facility] [employer] Comment: Reference range: <100 Desirable range <100 mg/dL for primary prevention; <70 mg/dL for patients with CHD or diabetic patients with > or = 2 CHD risk factors. LDL-C is now calculated using the Aries-Jarrell calculation, which is a validated novel method providing better accuracy than the Friedewald equation in the estimation of LDL-C. Aries SS et al. TRAN. 2013;310(19): 4503-5816 (http://education.Rocketick/faq/JMV274) Chol/HDLC Ratio 5.0(H) <5.0 (calc) [facility] Non-HDL Cholesterol 104 <130 mg/dL [facility] Comment: For patients with diabetes plus 1 major ASCVD risk factor, treating to a non-HDL-C goal of <100 mg/dL (LDL-C of <70 mg/dL) is considered a therapeutic option. Blood 11/15/2024 1:26 PM EST 11/15/2024 1:27 PM EST Brendon Jackson PA-C LAB BLOOD ORDERABLES Final R esult [facility] [address], [place] [address] [employer] [address] [place] [address] * HM Diabetes: Urine Protein Screening (01/26/2024) Microalbumin, Urine 5.9 Creatinine, Random Urine 67 Urine Historical Provider HEALTH MAINTENANCE Final Result from Last 3 Months or Most Recently Relevant to Health Maintenance Insurance [place] [address] [place] [phone] DENTAL - HSN PARTIAL (MEDICAID) * Guarantor: Chadd Valderrama Yohan Account Type Relation to Patient Date of Phone Billing Address Personal/Family Self [address] [place] Care Teams Car Pre Cooler Relationship Specialty Start Date End Date Brendon Jackson PA-C [address] [place] [address] [place] [address] PCP - General Family Medicine 02/27/24 Rosa Guthrie RN [address] [place] [address] Governor Assembler Hydraulic 05/07/24 Fabricio Samaniego Dentist 10/07/22
--- OUTSIDE RECORDS SUMMARY | 2025-08-08 18:27 | XMS_ITS ---
Continuity of Care Document (CCD) Created on: August 08, 2025 LavelleChadd External Reference #: [id number] : [id number] Sex: Male Author Organization [facility] Address [address] [facility] [address] [place], [place] Phone [phone] Care Team Providers Care Magnetic Locater Name Role Phone Mayra Reyes MD Care Team Information Refinish Technician Unavailable Social History Type Date Description Comments Sex Male Sex Unknown
--- OUTSIDE RECORDS SUMMARY | 2025-08-08 18:27 | XMS_ITS | Encounter Summary ---
Author Organization [facility], Address [address] [place] [address] Phone Care Team Providers Care Diabetologist Name Role Phone Brendon Jackson Primary Care Provider [phone] Encounter Details Date Type Department Care Team (Late st Contact Info) Description 01/27/2024 Documentation Only [facility] [address] [place] [address] Florinda Mcclure [address] [place] [phone] Social History Tobacco Use Types Packs/Day Years [...] Visit [facility] [address] Miguel [place] [address] [place] [phone] Yan Epstein MD [address] [place] [address] [place] [address] documented as of this encounter Visit Diagnoses Not on filedocumented in this encounter Care Teams Diabetologist Relationship Specialty Start Date End Date Brendon Jackson [address] [place] [address] [place] [address] PCP - General 02/06/25 documented as of this encounter
--- OUTSIDE RECORDS SUMMARY | 2025-08-08 18:27 | XMS_ITS | Encounter Summary ---
Author Organization [facility], Address [address] [place] [address] Phone Care Team Providers Care Ciaio Counter Molder Name Role Phone Brendon Jackson Primary Care Provider [phone] Encounter Details Date Type Department Care Team (Late st Contact Info) Description 02/09/2024 Documentation Only [facility] [address] [place] [address] Meme [place], [place] [address] [place] [phone] Social History Tobacco Use Types Packs/Day Years [...] Visit [facility] [place] Dr José Miguel DE LA TORRE [address] [place] [phone] Yan Epstein MD [address] [place] [address] [place] [phone] documented as of this encounter Visit Diagnoses Not on filedocumented in this encounter Care Teams Ciaio Counter Molder Relationship Specialty Start Date End Date Brendon Jackson [address] [place], [place] [address] [address] PCP - General 02/06/25 documented as of this encounter
--- OUTSIDE RECORDS SUMMARY | 2025-08-08 18:27 | XMS_ITS | Encounter Summary ---
Author Organization [facility], Address [address] [place] [address] Phone Care Team Providers Care Systems Support Officer Name Role Phone Brendon Jackson Primary Care Provider [phone] Encounter Details Date Type Department Care Team (Late st Contact Info) Description 08/06/2024 Documentation Only [facility] [address] [place] [place] [address] Florinda Mcclure [address] [place] [phone] Social History Tobacco Use Types Packs/Day Years [...] Visit [facility] [address] José Miguel DE LA TORRE [address] [place] [phone] Yan Epstein MD [address] [place] [address] [place] [address] documented as of this encounter Visit Diagnoses Not on filedocumented in this encounter Care Teams Systems Support Officer Relationship Specialty Start Date End Date Brendon Jackson [address] [place] [address] [place] [address] PCP - General 02/06/25 documented as of this encounter
--- OUTSIDE RECORDS SUMMARY | 2025-08-08 18:28 | XMS_ITS | Encounter Summary ---
Author Organization [employer] Address [address] [place] [address] 7t [place] [address] Care Team Providers Care Clinical Data Management Director Name Role Phone Brendon Jackson PA-C Primary Care Provider [phone] Rosa Guthrie RN Unavailable Encounter Details Date Type Department Care Team (Late st Contact Info) Description 06/09/2025 Results Follow-Up [facility] [address] [facility] [address] [place] [address] Brendon Jackson PA-C [address] [place] [address] Hemoglobin A1c Social History Tobacco Use Types Packs/Day Years [...] Description 09/26/2025 12:40 PM EST Office Visit [facility] [address] [facility] [address] [place] [address] Brendon Jackson PA-C [address] [place], [place] [phone] documented as of this encounter Visit Diagnoses Not on filedocumented in this encounter Additional Health Concerns Assessment Noted Time PHQ-9 Depression Total Score: 3 03/08/20 24 12:57 PM EDT documented as of this encounter Care Teams Clinical Data Management Director Relationship Specialty Start Date End Date Brendon Jackson PA-C [address] [place] [address] PCP - General Family Medicine 02/27/24 Rosa Guthrie RN [address] [place] [address] Poultry Hatchery Manager 05/07/24 Fabricio Samaniego Dentist 10/07/22 documented as of this encounter
--- OUTSIDE RECORDS SUMMARY | 2025-08-08 18:28 | XMS_ITS | Encounter Summary ---
Author Organization [employer] Address [address] [place] [address] 7[place] [address] Care Team Providers Care Auto Collision Repair Instructor Name Role Phone Fabricio Samaniego DDChelsea Primary Care Provider [phone] Cassandra Roman MD Unavailable [phone] Cassandra Roman MD Unavailable [phone] Cassandra Roman MD Primary Care Provider [phone] Brendon Jackson PA-C Primary Care Provider [phone] Surekha Marie Unavailable Rosa Guthrie RN Unavailable Reason for Visit * Reason Comments Med Change Request Encounter Details Date Type Department Care Team (Late st Contact Info) Description 10/26/2022 Refill [facility] [address] [facility] [address] [place] [address] Cassandra Roman MD 119 [place] [address] Type 2 diabetes mellitus without complication, without long-term current use of insulin ([facility]) Social History Tobacco Use Types Packs/Day Years Used Date Smoking Tobacco: Never Assessed Sex and Gender Information Value Date Recorded [...] Description 09/26/2025 12:40 PM EST Office Visit [facility] [address] [facility] [address] [place] [address] Brendon Jackson PA-C [address] [place] [address] documented as of this encounter Visit Diagnoses Diagnosis Type 2 diabetes mellitus without complication, without long-term current use of insulin (HCC) documented in this encounter Care Teams Auto Collision Repair Instructor Relationship Specialty Start Date End Date Fabricio Samaniego DDS PCP - General Dentist 09/03/22 01/12/23 Cassandra Roman MD [address] [place] [address] PCP - General Family Medicine 01/13/23 02/26/24 Brendon Jackson PA-C [address] [place] [address] PCP - General Family Medicine 02/27/24 Cassandra Roman MD [address] [place] [address] Family Medicine 09/03/22 01/12/23 Cassandra Roman MD [address] [place] [address] Family Medicine 09/03/22 01/12/23 Surekha Marie [address] [place] [address] Community Health Worker 03/09/2405/22 Rosa Guthrie, RN [address] [place] [address] Chief School Finance Officer 05/07/24 Fabricio Samaniego Dentist 12/1/22 documented as of this encounter
--- OUTSIDE RECORDS SUMMARY | 2025-08-08 18:28 | XMS_ITS | Encounter Summary ---
Author Organization [employer] Address [address] [place] [address] 7t [place] [address] Care Team Providers Care Adjunct Latin Professor Name Role Phone Brendon Jackson PA-C Primary Care Provider [phone] Surekha Marie Unavailable Rosa Guthrie RN Unavailable Encounter Details Date Type Department Care Team (Late st Contact Info) Description 03/16/2024 Orders Only [facility] Information Management [address] [place] [phone] Provider, Not In System Social History Tobacco [...] the past 12 months, has t he [employer], gas, oil or water company threatened to [...] Description 09/26/2025 12:40 PM EST Office Visit [facility] [address] [facility] [address] [place] [address] Brendon Jackson PA-C 119 [place] [address] documented as of this encounter Procedures Procedure Name Priority Date/Time Associated Diagnosis Comments ELECTROCARDIOGRAM REPORT Routine 024 12:52 PM EDT documented in this encounter Results * Electrocardiogram Report (03/15/2024 12:52 PM EDT) us Not In System Provider IN CLINIC/BEDSIDE ORDERAB LES Final Result documented in this encounter Visit Diagnoses Not on filedocumented in this encounter Additional Health Concerns Assessment Noted Time PHQ-9 Depression Total Score: 3 03/08/20 24 12:57 PM EDT documented as of this encounter Care Teams Adjunct Latin Professor Relationship Specialty Start Date End Date Brendon Jackson PA-C [address] [place] [address] PCP - General Family Medicine 02/27/24 Surekha Marie [address] [place] [address] Community Health Worker 03/09/2405/22 Rosa Guthrie, RN [address] [place] [address] Yardage Control Operator Forming 05/07/24 Fabricio Samaniego Dentist 10/07/22 documented as of this encounter
--- OUTSIDE RECORDS SUMMARY | 2025-08-08 18:28 | XMS_ITS | Encounter Summary ---
Author Organization [facility] Address [address] [facility] [address] [place] [address] Phone Care Team Providers Care Floorworker Distributor Name Role Phone Cassandra Roman MD Primary Care Provider [phone] Pcp, Unknown Primary Care Provider Unavailabl e Cassandra Roman MD Primary Care Provider [phone] Cassandra Roman MD Primary Care Provider [phone] Cassandra Roman MD Primary Care Provider [phone] Encounter Details Date Type Department Care Team (Latest Contact Info) Description 02/09/2024 Transcribe Orders Virtual Department 30 [place] [address] Yan Epstein MD [address] [facility] [address] [place] [address] [email or web address] Stage 3a chronic kidney disease (CKD) (Primary Dx) Social History Tobacco Use Types Packs/Day Years [...] with a working camera? Not on file Sex and Gender Information Value Date Recorded Sex Assigned at Male 04/24/2022 9:34 PM EDT Legal Sex Male 9:32 AM EDT Gender Identity Male 04/24/2022 9:34 PM EDT Sexual Orientation Not on file documented as of this encounter Plan of Treatment Upcoming Encounters Date Type Department Care Team (Late st Contact Info) Description 05/09/2025 Procedure Pass [facility] [address] [place] [address] 08/09/2025 2:00 PM EDT Appointment [facility] [address] [place] [address] Aarti Rose DNP [address] [place] [address], [address] [address] 08/13/2025 2:30 PM EDT Office Visit [facility] [address] 3rd Floor, [address] [place] [address] Aarti Rose DNP [address] [place] [address], [address] [address] [email or web address] documented as of this encounter Visit Diagnoses Diagnosis Stage 3a chronic kidney disease (CKD)- Primary documented in this encounter Care Teams Floorworker Distributor Relationship Specialty Start Date End Date Cassandra Roman MD [email or web address] PCP - General Family Medicine 01/27/24 4 Pcp, Unknown PCP - General 03/06/24 03/06/24 Cassandra Roman MD [email or web address] PCP - General Family Medicine 03/07/24 4 Cassandra Roman MD [email or web address] PCP - General Family Medicine 05/22/24 5 Cassandra Roman MD [address] [facility] [place] [address] [email or web address] PCP - General Family Medicine 05/06/25 documented as of this encounter Additional Source Comments The information contained in this document represents components of the legal health record. It is not the complete legal health record.[facility]
--- OUTSIDE RECORDS SUMMARY | 2025-08-08 18:28 | XMS_ITS | Encounter Summary ---
Author Organization [facility] Address [address] [place] [address] [place] [address] Care Team Providers Care Waiter/Waitress Room Service Name Role Phone Cassandra Roman MD Primary Care Provider [phone] Brendon Jackson PA-C Primary Care Provider [phone] Surekha Marie Unavailable Rosa Guthrie RN Unavailable Encounter Details Date Type Department Care Team (Late st Contact Info) Description 07/26/2023 Orders Only [facility] [address] [phone] Cassandra Roman MD 119 [place] [address] Social History Tobacco Use Types Packs/Day Years [...] Description 09/26/2025 12:40 PM EST Office Visit [facility] [address] [facility] 200 [place] [address] Brendon Jackson PA-C 119 [place] [address] documented as of this encounter Visit Diagnoses Not on filedocumented in this encounter Care Teams Waiter/Waitress Room Service Relationship Specialty Start Date End Date Cassandra Roman MD [address] [place] [address] PCP - General Family Medicine 01/13/23 02/26/24 Brendon Jackson PA-C [address] [place] [address] PCP - General Family Medicine 02/27/24 Surekha Marie [address] [place] [address] Community Health Worker 03/09/2405/22 Rosa Guthrie, RN [address] [place] [address] Calf Skinner 05/07/24 Fabricio Samaniego Dentist 10/07/22 documented as of this encounter
--- OUTSIDE RECORDS SUMMARY | 2025-08-08 18:28 | XMS_ITS | Encounter Summary ---
Author Organization [employer] Address [address] [place] [address] 7[address] [place] [address] Care Team Providers Care Airline Dispatcher Name Role Phone Fabricio Samaniego DDChelsea Primary Care Provider [phone] Cassandra Roman MD Unavailable [phone] Cassandra Roman MD Unavailable [phone] Cassandra Roman MD Primary Care Provider [phone] Brendon Jackson PA-C Primary Care Provider [phone] Surekha Marie Unavailable Rosa Guthrie RN Unavailable Reason for Visit * Reason Comments Med Change Request Encounter Details Date Type Department Care Team (Late st Contact Info) Description 10/21/2022 Refill [facility] [address] [facility] [address] [place] [address] Cassandra Roman MD 119 [place] [address] Type 2 diabetes mellitus with microalbuminuria, without long-term current use of insulin ([facility]) Social History Tobacco Use Types Packs/Day Years Used Date Smoking Tobacco: Never Assessed Sex and Gender Information Value Date Recorded Sex Assigned at Male 11/10/2022 8:55 AM EST Legal Sex Male 8:38 PM EST Gender Identity Male 09/17/2022 9:06 PM EST Sexual Orientation Choose not to disclose 2021 9:06 PM EST documented as of this encounter Miscellaneous Notes * Telephone Encounter - Meli Michael - 10/25/2022 3:31 PM EST PA submitted documented in this encounter Plan of Treatment Upcoming Encounters Date Type Department Care Team (Late st Contact Info) Description 09/26/2025 12:40 PM EST Office [facility] [address] [facility] [address] [place] [address] Brendon Jackson PA-C [address] [place] [address] documented as of this encounter Visit Diagnoses Diagnosis Type 2 diabetes mellitus with microalbuminuria, without long-term current use of insulin (HCC) documented in this encounter Care Teams Airline Dispatcher Relationship Specialty Start Date End Date Fabricio Samaniego DDS PCP - General Dentist 09/03/22 01/12/23 Cassandra Roman MD [address] [place] [address] PCP - General Family Medicine 01/13/23 02/26/24 Brendon Jackson PA-C [address] [place] [address] PCP - General Family Medicine 02/27/24 Cassandra Roman MD [address] [place] [address] Family Medicine 09/03/22 01/12/23 Cassandra Roman MD [address] [place] [address] Family Medicine 09/03/22 01/12/23 Surekha Marie [address] [place] [address] Community Health Worker 03/09/2405/22 Rosa Guthrie RN [address] [place] [address] Hazmat Cdl A Driver 05/07/24 Fabricio Samaniego Dentist 10/07/22 documented as of this encounter
--- OUTSIDE RECORDS SUMMARY | 2025-08-08 18:28 | XMS_ITS | Encounter Summary ---
Author Organization [employer] Address [address] [place] [address] 7t [place] [address] Care Team Providers Care Vacuum Bottle Assembler Name Role Phone Cassandra Roman MD Primary Care Provider [phone] Brendon Jackson PA-C Primary Care Provider [phone] Surekha Marie Unavailable Rosa Guthrie RN Unavailable Reason for Visit * Reason Comments Med Refill Encounter Details Date Type Department Care Team (Late st Contact Info) Description 07/25/2023 Refill [facility] [address] [facility] 200 [place] [phone] Cassandra Roman MD 119 [place] [address] Type 2 diabetes mellitus with hyperglycemia (CMS/HCC) Social History Tobacco Use Types Packs/Day Years Used Date Smoking Tobacco: Never Assessed Sex and Gender Information Value Date Recorded Sex Assigned at Male 11/10/2022 8:55 AM EST Legal Sex Male 8:38 PM EST Gender Identity Male 09/17/2022 9:06 PM EST Sexual Orientation Choose not to disclose 2021 9:06 PM EST documented as of this encounter Miscellaneous Notes * Telephone Encounter - Cassandra Roman MD - 07/26/2023 3:26 PM EDT Has an rx for 3 mg at the pharmacy which is what he is supposed to be on and they will get it for him and notify him by tomorrow. documented in this encounter Plan of Treatment Upcoming Encounters Date Type Department Care Team (Late st Contact Info) Description 09/26/2025 12:40 PM EST Office Visit [facility] [address] [facility] [address] [place] [address] Brendon Jackson PA-C [address] [place] [address] documented as of this encounter Visit Diagnoses Diagnosis Type 2 diabetes mellitus with hyperglycemia (HCC) documented in this encounter Care Teams Vacuum Bottle Assembler Relationship Specialty Start Date End Date Cassandra Roman MD [address] [place] [address] PCP - General Family Medicine 01/13/23 02/26/24 Brendon Jackson PA-C [address] [place] [address] PCP - General Family Medicine 02/27/24 Surekha Marie [address] [place] [address] Community Health Worker 03/09/2405/22 Rosa Guthrie, RN [address] [place] [address] Slot Attendant 05/07/24 Fabricio Samaniego Dentist 10/07/22 documented as of this encounter
--- OUTSIDE RECORDS SUMMARY | 2025-08-08 18:28 | XMS_ITS | Encounter Summary ---
Author Organization [facility] Address [address] [place] [address] [place] [address] Care Team Providers Care Senior Information Security Consultant Name Role Phone Cassandra Roman MD Primary Care Provider [phone] Brendon Jackson PA-C Primary Care Provider [phone] Surekha Marie Unavailable Rosa Guthrie RN Unavailable Encounter Details Date Type Department Care Team (Late st Contact Info) Description 07/25/2023 Orders Only [facility] [address] [phone] Cassandra Roman MD 119 [place] [address] Social History Tobacco Use Types Packs/Day Years [...] Description 09/26/2025 12:40 PM EST Office Visit [facility] 119 [facility] 200 [place] [address] Brendon Jackson PA-C 119 [place] [address] documented as of this encounter Visit Diagnoses Not on filedocumented in this encounter Care Teams Senior Information Security Consultant Relationship Specialty Start Date End Date Cassandra Roman MD [address] [place] [address] PCP - General Family Medicine 01/13/23 02/26/24 Brendon Jackson PA-C [address] [place] [address] PCP - General Family Medicine 02/27/24 Surekha Marie [address] [place] [address] Community Health Worker 03/09/2405/22 Rosa Guthrie, RN [address] [place] [address] Sales Planning Analyst 05/07/24 Fabricio Samaniego Dentist 10/07/22 documented as of this encounter
--- OUTSIDE RECORDS SUMMARY | 2025-08-08 18:28 | XMS_ITS | Encounter Summary ---
Author Organization [facility] Address [address] [facility] [address] [place] [address] Phone Care Team Providers Care Garden Worker Name Role Phone Pcp, Unknown Primary Care Provider Unavailabl e Cassandra Roman MD Primary Care Provider [phone] Cassandra Roman MD Primary Care Provider [phone] Cassandra Roman MD Primary Care Provider [phone] Encounter Details Date Type Department Care Team (Late st Contact Info) Description 03/06/2024 Procedure Pass [facility] [address] [place] [address] Social History Tobacco Use Types Packs/Day Years [...] on file documented as of this encounter Functional Status * Calculated C-SSRS Risk Score (Lifetime/Recent) Answer Date of Assessment Author No Risk Indicated 03/06/2024 6:40 AM EDT Pushpa Castro RN * [place] Suicide Severity Rating Scale (Screener/Recent Self-Report) Question Answer Date of Assessment Author 1. Wish to be (Past 1 Month) No 024 6:40 AM EDT Pushpa Castro RN 2. Non-Specific Active Suici gia Thoughts (Past 1 Month) No 03/06/2024 6:40 AM EDT Aster Castro RN 6. Suicidal Behavior (Lifetime) No 6:40 AM EDT Pushpa Castro RN documented as of this encounter Plan of Treatment Upcoming Encounters Date Type Department Care Team (Late st Contact Info) Description 05/09/2025 Procedure Pass [facility] [address] [place] [address] 08/09/2025 2:00 PM EDT Appointment [facility] [address] [place] [address] Aarti Rose DNP [address] [place] [address] 08/13/2025 2:30 PM EDT Office Visit [facility] [address] [place] [address] [address]rd Floor, [address] [address] Aarti Rose DNP [address] [place] [address], [address] [address] documented as of this encounter Visit Diagnoses Not on filedocumented in this encounter Care Teams Garden Worker Relationship Specialty Start Date End Date Pcp, Unknown PCP - General 03/06/24 03/06/24 Cassandra Roman MD [email or web address] PCP - General Family Medicine 03/07/24 4 Cassandra Roman MD [email or web address] PCP - General Family Medicine 05/22/24 5 Cassandra Roman MD [address] [place] [address] [email or web address] PCP - General Family Medicine 05/06/25 documented as of this encounter Additional Source Comments The information contained in this document represents components of the legal health record. It is not the complete legal health record.[facility]
[2025-08-08 19:18] VITALS: BP 131/58; PULSE 59; RESP 16; TEMP 36.3; O2SAT 96
[2025-08-08 19:24] LABS: Glucose, Whole Blood 278 mg/dL (60-115)
[2025-08-08 21:13] LABS: Appearance Urine Clear; Glucose Urine UA >=1000 mg/dL (Negative); PH 5.5 (5.0-9.0); Specific Gravity - Urine 1.025 (1.005-1.025); UMIC TRIGGER UACC YES
[2025-08-08 21:21] LABS: Glucose, Whole Blood 208 mg/dL (60-115)
[2025-08-08 21:22] VITALS: BP 146/67; PULSE 60; RESP 16; TEMP 36.6; O2SAT 97
[2025-08-08 21:28] VITALS: BP 146/67; PULSE 60; RESP 16; TEMP 36.6; O2SAT 97
== END 2025-08-08 21:29 | disposition home or self-care (01) ==
PROVIDERS: Physician Assistant; Emergency Provider Emergency Medicine Emergency Medical Services
DX: E11.65 Type 2 diabetes mellitus with hyperglycemia (principal); R79.89 Other specified abnormal findings of blood chemistry; R35.89 Other polyuria; Z79.4 Long term (current) use of insulin; Z79.899 Other long term (current) drug therapy
CPT/HCPCS: 36415; 80053; 81001; 82010; 82947; 85025; 96360; 96361; 99284